=== PATIENT | female | born 2000 | race Caucasian/White ===

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

== ENCOUNTER 2022-10-06 15:34 | Outpatient (CLI) | payer OTHER, SELFPAY ==
[2022-10-06 16:57] LABS: Hepatitis B Surface Antigen Negative (Negative)
[2022-10-06 17:00] LABS: HIV 1/2 Ab P24 Ag Result Negative (Negative)
[2022-10-06 17:03] LABS: HAV RESULT Negative (Negative); Hepatitis B Core IgM Result Negative (Negative)
[2022-10-06 17:15] LABS: Hepatitis C Virus Antibody Negative (Negative)
[2022-10-07 14:47] LABS: Rapid Plasma Reagin Non-Reactive (NonReactive)
== END 2022-10-06 15:35 | disposition home or self-care (01) ==
LOC: ANHLAB 15:36
PROVIDERS: Visit Provider Obstetrics & Gynecology
DX: Z20.2 Contact with and (suspected) exposure to infections with a predominantly sexual mode of transmission (principal)
CPT/HCPCS: 36415; 80074; 86592; 86703; G0432

== ENCOUNTER 2024-01-18 23:25 | Emergency (ER) | payer OTHER, SELFPAY ==
[2024-01-18 23:46] VITALS: BP 95/55; PULSE 96; RESP 14; TEMP 36.6; O2SAT 100
--- NOTE | 2024-01-19 | ECG_ITS ---
Measurements Intervals [place] Rate: 86 P: 65 TX: 147 QRS: 76 QRSD: 87 T: 53 QT: 360 QTc: 433 Interpretive Statements SINUS RHYTHM BASELINE ARTIFACT- I, II, III, AVL NORMAL ECG NO PREVIOUS ECG AVAILABLE FOR COMPARISON Electronically Signed On 01-19-2024 9:19:39 [employer] by Slick Garcia D.O.
[2024-01-19 00:18] LABS: Hematocrit 43.5 % (37.0-47.0); Immature Platelet Fraction Pct 4.7 % (0.9-11.2); Mean Corpuscular HGB Conc 32.2 g/dl (32-36); Mean Corpuscular Hemoglobin 31.4 pg (26-34); Mean Corpuscular Volume 97.5 fl (80-100); Mean Platelet Volume 10.5 fl (7.4-10.4); Platelet Count Result 231 k/mm3 (150-375); Red Blood Count 4.46 M/mm3 (4.2-5.4); Red Cell Distribution Width 11.4 % (11.5-14.5); White Blood Count 13.8 K/mm3 (4.5-10.0)
[2024-01-19 00:37] LABS: Alanine Aminotransferase 29 U/L (6-35); Albumin Level 4.7 g/dL (3.5-5.1); Alkaline Phosphatase 92 U/L (38-126); Anion Gap 11 mmol/L (8-16); Aspartate Amino Transferase 48 U/L (14-36); Bilirubin,Total 0.6 mg/dL (0.2-1.3); Blood Urea Nitrogen 23 mg/dL (7-17); Calcium 9.4 mg/dL (8.4-10.2); Carbon Dioxide 23 mmol/L (22-30); Chloride 106 mmol/L (98-107); Estimated CRCL calculation 94 ml/min; Estimated Glomerular Filt Rate > 60; Glucose 96 mg/dL (65-110); Lipase 146 U/L (23-300); Potassium 3.4 mmol/L (3.4-5.0); Sodium 140 mmol/L (137-145)
[2024-01-19 00:44] LABS: Appearance Urine Cloudy (Clear); Bacteria Urine None Seen /hpf; Bilirubin Urine 2+ (Negative); Blood Urine Negative (Negative); Color Urine Dark Yellow (Yellow); Glucose Urine UA Negative (Negative); Ketones Urine Trace mg/dL (Negative); Leukocyte Esterase Ur Negative LEU/UL (Negative); Need Manual Microscopic Reviewed; Nitrate Urine Negative (Negative); Non Pathogenic Casts 0-2; Protein Urine 1+ mg/dL (Negative); RBC Urine 21-50 /hpf (0-2); Squamous Epithelial Cell Urine Many /hpf (Few); WBC Urine 0-5 /hpf; pH Urine 5.5 (5.0-9.0)
[2024-01-19 00:48] LABS: Band Neutrophils Percent 1 % (0-6); Lymphocytes Absolute Manual 4.83 K/mm3 (1.1-4.5); Monocytes Percent Manual 8 % (3-9); Neutrophils Absolute Manual 7.86 K/mm3 (1.7-7.2); Neutrophils Percent Manual 56 % (46-73); Total Cells Counted 100
[2024-01-19 00:49] LABS: Platelet Estimate Adequate (Adequate); Schistocytes None Seen (NORMAL)
[2024-01-19 00:52] LABS: Add Urine Microscopic? YES
--- NOTE | 2024-01-19 01:25 | PC.NURSE ---
Pt called for room, no answer
== END 2024-01-19 02:19 | disposition left against medical advice (07) ==
PROVIDERS: Emergency Provider Emergency Medicine
DX: R07.9 Chest pain, unspecified (principal)
CPT/HCPCS: 36415; 80053; 81001; 81025; 83690; 85025; 85055; 93005; 99199

== ENCOUNTER 2025-02-24 17:55 | Emergency (ER) | payer OTHER, SELFPAY ==
--- NOTE | ~2025-02-24 | US_ITS ---
FIRST TRIMESTER ULTRASOUND 02/24/2025 18:30 CDT Ordering provider: Monserrat Fierro APRN History: . vaginal bleeding and cramping . Comparison: None. FINDINGS: INTRAUTERINE GESTATIONAL SAC: Present. Measures 2.1 cm. Equal to 7 weeks. Seen in the cervix area. POLE: Present. Measures 1.6 cm. It called to 8 weeks and 0 days. Seen in the cervix area. heart tone is not detected. UTERUS: The uterus measures 7.3x 3.5x 3.7 cm. in length which is within normal limits. No myometrial masses. FREE FLUID: Seen in the cul-de-sac. OVARIES: Normal in size with the right measuring 3.6x 2.7x 2.8 cm. and the left is not demonstrated. Doppler flow is demonstrated within both ovaries. ADNEXAL MASSES: None. IMPRESSION: Intrauterine with pole seen in the cervix area. No heart tone demonstrated. Reviewed, dictated and finalized at location A.
--- OUTSIDE RECORDS SUMMARY | 2025-02-24 17:57 | XMS_ITS | Clinical Summary ---
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 Name Role Phone Tyshawn Gonzales MD Unavailable [phone] German Dobbins Unavailable Unavailable Herminio Amador Primary Care Provider + Allergies Active Allergy Reactions Criticality Noted Date Comments Latex Hives,Itching,Rash Medium 03/21/2020 Penicillins Hives,Itching,Rash Medium 06/26/2009 Sulfa (Sulfonamide Antibiotics) Hives,Itching,Rash Medium 06/26/2009 Medications ibuprofen (ADVIL,MOTRIN) 600 mg tablet Take 1 tablet (600 mg total) by mouth every 8 (eight) hours as needed for pain or headaches Active omeprazole (PriLOSEC) 40 mg capsule Take 1 capsule (40 mg total) by mouth 2 (two) times a day as needed (heartburn) Active ziprasidone (GEODON) 20 mg capsule Take 1 capsule (20 mg total) by mouth nightly Take one 40 mg capsule in the morning and one 20 mg capsule at night 30 capsule 3 Active ziprasidone (GEODON) 40 mg capsule Take 1 capsule (40 mg total) by mouth every morning Take one 40 mg capsule in the morning and one 20 mg capsule at night 30 capsule 3 Active labetaloL (NORMODYNE,TRANDAT E) 200 mg tabletIndications: hypertension Take 0.5 tablets (100 mg total) by mouth 2 (two) times a day Adjusts dose based on BP up to 200 mg twice a day if needed 60 tablet 3 Active escitalopram (LEXAPRO) 20 mg tabletIndications: Anxiety with Depression Take 1 tablet (20 mg total) by mouth daily 30 tablet 3 Active ALPRAZolam (XANAX) 1 mg tabletIndications: anxiety Take 1 tablet (1 mg total) by mouth 3 (three) times a day as needed for anxiety 90 tablet 3 Active levETIRAcetam (KEPPRA) 500 mg tablet Take 4 tablets (2,000 mg total) by mouth 2 (two) times a day 240 tablet 3 Active dextroamphetamine- amphetamine XR (ADDERALL XR) 30 mg 24 hr capsuleIndications :Attention deficit hyperactivity disorder (ADHD), unspecified ADHD type Take 2 capsules (60 mg) by mouth every morning. 60 capsule 3 Active givosiran 189 mg/mL solutionIndication s:Acute Intermittent Porphyria Inject 1.2 mL (227 mg total) under the skin every 30 (thirty) days 2 mL 11 4 Active folic acid 0.8 mg capsuleIndications :Acute intermittent porphyria (HCC) Acti ve drospirenone, contraceptive, (Slynd) tablet tabletIndications: Acute intermittent porphyria (HCC) Take 1 each (4 mg total) by mouth daily Active gentamicin (GARAMYCIN) 40 mg/mL injectionIndicatio ns:Acute intermittent porphyria (HCC) Acti ve meclizine (ANTIVERT) 25 mg tabletIndications: Acute intermittent porphyria (HCC) Acti ve nitrofurantoin monohydrate (MACROBID) 100 mg capsuleIndications :Acute intermittent porphyria (HCC) Acti ve phenazopyridine (PYRIDIUM) 200 mg tabletIndications: Acute intermittent porphyria (HCC) Acti ve Active Problems Problem Noted Date Diagnosed Date Rash 09/27/2024 Assessment & Plan (09/27/2024 6:26 PM CHARGEBACK ANALYST): Patient began c/o painful rash of the R axilla the evening of (09/26). On exam, it is erythematous and contained to axilla. No discharge or LAD appreciated. Denied pruritus or having used any new products on the area. May be due to hemin tx, as patient hasn't required administration in several months. - ordered polysporin & ibuprofen - per mother, patient will see PCP (09/29) & will f/u then AIP (acute intermittent porphyria) 10/22/2022 Assessment & Plan (10/22/2022 4:36 PM CHARGEBACK ANALYST): Followed by hematology, presenting for scheduled hematin infusion -CBC, CMP, urine porphobilinogen -Hematology notified H/O porphyria 09/23/2022 Constipation 09/23/2022 Assessment & Plan (09/23/2022 4:07 PM CHARGEBACK ANALYST): - Start miralax daily and colace BID PRN, if no BM in 24 hours, try suppository or mag citrate. - PO as tolerated. Acute intermittent (hepatic) porphyria Assessment & Plan (09/23/2022 4:06 PM CHARGEBACK ANALYST): - Followed by the heme clinic. Their service is aware of the admission. - Urine porphobilinogen ordered. CBC, CMP also pending. - Hematin infusion planned for 4 days (performed once per month since 10/2021) to begin tonight. The heme service will manage her care after today. Port to be accessed now. - She reports back pain, stomach issues are signs of a flare of her AIP, but her exam is benign. Treat back pain as discussed elsewhere. Meds for constipation as discussed elsewhere. Assessment & Plan (08/26/2022 6:15 PM CDT): Hx porphyria, presents for monthly hematin infusion. Has port in place. Hematology notified of admit. Await lab results. Monitor overnight for tolerance of infusion. Monitor serial counts and await further recs. Assessment & Plan (07/29/2022 6:49 PM CDT): -hematology fellow notified of admission. -plan for hematin infusion 07/30 -will obtain comprehensive labs including CBC, CMP, Mag, phos, PT INR, PTT Insomnia 06/24/2022 Assessment & Plan (10/22/2022 4:38 PM CHARGEBACK ANALYST): -Continue home tenex Assessment & Plan (09/23/2022 4:06 PM CHARGEBACK ANALYST): - At baseline. Continue home Tenex. Assessment & Plan (06/24/2022 11:27 PM CDT): Continue home meds ADHD 06/24/2022 Assessment & Plan (09/24/2024 9:05 AM CHARGEBACK ANALYST): On adderall 60mg daily - Continue home adderall - Adjustments per outpatient Assessment & Plan (09/12/2023 1:28 AM CDT): To resume Adderall in am Assessment & Plan (10/22/2022 4:37 PM CHARGEBACK ANALYST): -Continue home adderall Assessment & Plan (07/29/2022 6:49 PM CDT): Continue Adderall Assessment & Plan (06/24/2022 11:28 PM CDT): Continue AM, Adderal Acute pharyngitis 05/21/2022 Assessment & Plan (05/24/2022 10:12 AM CDT): History of recurrent symptoms (1-3 per year) last complicated by peritonsillar abscess (03/28-04/03) managed with 7 days of clindamycin with improvement of symptoms. Worsening symptoms for two days prior to admission. Throat culture positive for Strep dysgalactiae during prior admission. -Repeat CT shows improved peritonsillar fluid collection but worsening adenoid hypertrophy and retropharyngeal fluid collection. -HSV pharyngeal swab negative -Continue empiric antibiotic coverage with cefazolin, plan for repeated 10 day course (until tonsillectomy on 05/30 with ENT) - Transition to orals (cephalexin 50 q8 ) at discharge - Prior providers discussed with ENT re-drainage, tonsillectomy scheduled for 05/30 Assessment & Plan (05/23/2022 9:38 AM CDT): History of recurrent symptoms (1-3 per year) last complicated by peritonsillar abscess (03/28-04/03) managed with 7 days of clindamycin with improvement of symptoms. Worsening symptoms for two days prior to admission. Throat culture positive for Strep dysgalactiae during prior admission. -Repeat CT shows improved peritonsillar fluid collection but worsening adenoid hypertrophy and retropharyngeal fluid collection. -HSV pharyngeal swab negative -Continue empiric antibiotic coverage with cefazolin, plan for repeated 10 day course (until tonsillectomy on 05/30 with ENT) - Transition to orals (cephalexin or amoxicillin) at discharge - If worsening or concern for abscess progress, will transition to amp/sulbactam for added anaerobic coverage as previously responded best to clindamycin (limited use in AIP). Current responding well to 1st generation cephalosporin - Improved WBC count, no fevers, Improved symptoms - Avoid metronidazole and clindamycin given risk to exacerbate AIP - Blood cultures without growth - Prior providers discussed with ENT re-drainage, tonsillectomy scheduled for 05/30 Assessment & Plan (05/22/2022 10:00 AM CDT): History of prior symptoms complicated by peritonsillar abscess (03/28-04/03) managed with 7 days of clindamycin with improvement of symptoms. Worsening symptoms for two days prior to admission. Throat culture positive for Strep dysgalactiae during prior admission -Repeat CT shows improved peritonsillar fluid collection but worsening adenoid hypertrophy and retropharyngeal fluid collection. -HSV pharyngeal swab to r/o superimposed viral pharyngitis. -Continue empiric antibiotic coverage with cefazolin, plan for repeated 10-14 day course pending clinical improvement. - WBC count improved following antibiotics and fluids - If fails to improve, will broaden to amp/sulbactam given prior failure to improve without anaerobic coverage - Avoid metronidazole and clindamycin given risk to exacerbate AIP - Follow up blood cultures, limited utility of repeat throat culture - Prior providers discussed with ENT re-drainage, tonsillectomy scheduled for 05/30, will follow up to discuss expedited OR given recurrent hospitalizations a/w exacerbations of AIP Assessment & Plan (05/21/2022 9:21 PM CDT): -Throat culture positive for Strep dysgalactiae during prior admission, repeat CT shows improved peritonsillar fluid collection but worsening adenoid hypertrophy and retropharyngeal fluid collection. -Obtain HSV pharyngeal swab to r/o superimposed viral pharyngitis. -Continue empiric antibiotic coverage with cefazolin, plan for repeated 10-14 day course pending clinical improvement. Anemia 05/21/2022 Assessment & Plan (05/23/2022 9:40 AM CDT): -Secondary to AIP, stable Assessment & Plan (05/22/2022 10:04 AM CDT): -Secondary to AIP, stable Assessment & Plan (05/21/2022 9:27 PM CDT): -Secondary to AIP, see plan. Porphyria 05/20/2022 Assessment & Plan (05/24/2022 10:12 AM CDT): AIJP with exacerbation, diagnosed 10/2021, established with hematology (Dr. Lin) receiving scheduled Hemin infusions as outpatient via R IJ port (patent). Received Hemin 4mg/kg x 1 in the emergency department following presentation with acute behavioral requiring physical and chemical restraints associated with abdominal pain and sepsis. -Hematology following, appreciate assistance - Hemin 4mg/kg/day (336mg) daily x 4 days (last dose today) - Urine porphobilinogen after doses 2 (pending) /4 (ordered for today) - Reviewed MAR for exacerbating agents -Avoid clonopin, estrogens, hydralazine, hydroxyzine, nifedipine, nitrofurantoin, rifampin, spironolactone, topiramate, bactrim, metronidazole, clindamycin -Encouraged to avoid alcohol and tobacco Assessment & Plan (05/23/2022 9:23 AM CDT): AIJP with exacerbation, diagnosed 10/2021, established with hematology (Dr. Lin) receiving scheduled Hemin infusions as outpatient via R IJ port (patent). Received Hemin 4mg/kg x 1 in the emergency department following presentation with acute behavioral requiring physical and chemical restraints associated with abdominal pain and sepsis. -Hematology following, appreciate assistance - Hemin 4mg/kg/day (336mg) daily x 4 days (last dose 05/24, scheduled in MAR) - Urine porphobilinogen after doses 2 (pending) /4 (ordered for tomorrow) - Reviewed MAR for exacerbating agents -Avoid clonopin, estrogens, hydralazine, hydroxyzine, nifedipine, nitrofurantoin, rifampin, spironolactone, topiramate, bactrim, metronidazole, clindamycin -Encouraged to avoid alcohol and tobacco Assessment & Plan (05/22/2022 9:50 AM CDT): AIJP with exacerbation, diagnosed 10/2021, established with hematology (Dr. Lin) receiving scheduled Hemin infusions as outpatient via R IJ port (patent). Received Hemin 4mg/kg x 1 in the emergency department following presentation with acute behavioral requiring physical and chemical restraints associated with abdominal pain and sepsis. -Hematology following, appreciate assistance - Hemin 4mg/kg/day (336mg) daily x 4 days (last dose 05/24, scheduled in MAR) - Urine porphobilinogen after doses 2/4 - Reviewed MAR for exacerbating agents -Avoid clonopin, estrogens, hydralazine, hydroxyzine, nifedipine, nitrofurantoin, rifampin, spironolactone, topiramate, bactrim, metronidazole, clindamycin Assessment & Plan (05/21/2022 9:25 PM CDT): -With acute exacerbation, hematology plan for 4 doses of hemin 4mg/kg/day (336mg) daily from 05/21-05/24, obtain urine porphobilinogen after dose 2 and dose 4. -Avoid clonopin, estrogens, hydralazine, hydroxyzine, nifedipine, nitrofurantoin, rifampin, spironolactone, topiramate, bactrim during AIP exacerbation. Depression, major, recurrent 03/28/2022 Assessment & Plan (10/22/2022 4:38 PM CHARGEBACK ANALYST): -Continue home wayne mendosa PRN xanax Assessment & Plan (09/23/2022 4:05 PM CHARGEBACK ANALYST): - Home Lexapro and Geodiann. Assessment & Plan (08/26/2022 6:16 PM CDT): Continue home naderaprcandace and wayne. F/u with primary provider. No current S/H ideations. Assessment & Plan (04/01/2022 11:19 AM CDT): - Cont escitalopram Assessment & Plan (03/31/2022 5:56 PM CDT): - Cont escitalopram Assessment & Plan (03/30/2022 3:16 PM CDT): - Cont escitalopram Assessment & Plan (03/28/2022 5:07 AM CDT): - Cont escitalopram Epilepsy 12/16/2021 Assessment & Plan (09/24/2024 9:04 AM CHARGEBACK ANALYST): Likely related to AIP. Reportedly has small seizures every night though patient unable to further characterize this. Unclear if that represents actual seizure vs else - Continue home keppra 2g BID - seizure precautions Assessment & Plan (09/12/2023 1:29 AM CDT): Continue Keppra Assessment & Plan (10/22/2022 4:37 PM CHARGEBACK ANALYST): -Continue home keppra Assessment & Plan (09/23/2022 4:05 PM CHARGEBACK ANALYST): - No recent seizures. - Continue keppra 2000mg BID. Assessment & Plan (08/26/2022 6:16 PM CDT): Continue home keppra 2gm BID. No recent OP events. Assessment & Plan (07/29/2022 6:49 PM CDT): Continue Keppra Assessment & Plan (06/24/2022 11:27 PM CDT): On keppra at home, continue Assessment & Plan (05/23/2022 9:40 AM CDT): -Continue home Keppra and Geodon -Seizure precautions -No observed seizures while inpatient, typically occur with AIP flairs Assessment & Plan (05/21/2022 9:31 PM CDT): -Continue home Keppra. Assessment & Plan (05/21/2022 9:25 PM CDT): -Continue home Keppra. Assessment & Plan (04/01/2022 11:18 AM CDT): - Cont keppra Assessment & Plan (03/31/2022 5:56 PM CDT): - Cont keppra Assessment & Plan (03/30/2022 3:16 PM CDT): - Cont keppra Assessment & Plan (03/28/2022 5:06 AM CDT): - Cont keppra Assessment & Plan (02/18/2022 4:00 PM CDT): Since age 6, seizures tend to worsen with flares of AIP. - cont home keppra 2000mg BID Assessment & Plan (12/16/2021 10:12 AM CHARGEBACK ANALYST): -Continue Keppra 1500mg bid. Patient has not been started on Vimpat due to insurance coverage. Acute intermittent porphyria 10/31/2021 Assessment & Plan (09/27/2024 6:23 PM CHARGEBACK ANALYST): History of AIP following with hematology. Presented for chest pain and abdominal pain for 2 weeks consistent with prior AIP episodes. Low concern for cardiopulmonary issue. - Hematology consulted, PICC placed 09/24 & removed 09/27 - Started Hemin 4mg/kg/day daily x4d per hematology; completed 09/27 - urine PBG level (09/23): 31.6 - Avoid klonopin, estrogens, hydralazine, hydroxyzine, nifedipine, nitrofurantoin, rifampin, spironolactone, topiramate, bactrim during AIP exacerbation. Assessment & Plan (09/12/2023 5:01 AM CDT): Associated with psychiatric changes. Prior history multiple admission with behavioral changes Heme to follow up tomorrow S/p D10 in ED, currently receiving hemin to replenish the heme pool Avoid triggers including alcohol, starvation Assessment & Plan (06/24/2022 11:26 PM CDT): Presented for hematin injection Assessment & Plan (04/01/2022 11:18 AM CDT): Presenting with acute flare evidenced by typical attack symptoms and change in urine - she was originally diagnosed 10/2021 - s/p 3 inpatient admissions for hematin, while awaiting insurance for givosiran monthly. On admission T 39.2C, HR 118, BP stable - labs with unremarkable BMP, WBC 28.1, Hgb 12.2, lactate 1.2, rhinovirus/enterovirus (+), blood cultures obtained, UA not c/w infection, and CXR clear. - Hematology following - s/p Hemin 4mg/kg infusions x4d - PBG urine before and after Hemin infusions pending - Continue daily CBC, CMP Assessment & Plan (03/31/2022 5:54 PM CDT): Presenting with acute flare evidenced by typical attack symptoms and change in urine - she was originally diagnosed 10/2021 - s/p 3 inpatient admissions for hematin, while awaiting insurance for givosiran monthly. On admission T 39.2C, HR 118, BP stable - labs with unremarkable BMP, WBC 28.1, Hgb 12.2, lactate 1.2, rhinovirus/enterovirus (+), blood cultures obtained, UA not c/w infection, and CXR clear. - Hematology following - Hemin 4mg/kg infusions ordered by Heme - Check PBG urine before and after Hemin infusions and before discharge home - Continue daily CBC, CMP Assessment & Plan (03/30/2022 3:14 PM CDT): Presenting with acute flare evidenced by typical attack symptoms and change in urine - she was originally diagnosed 10/2021 - s/p 3 inpatient admissions for hematin, while awaiting insurance for givosiran monthly. On admission T 39.2C, HR 118, BP stable - labs with unremarkable BMP, WBC 28.1, Hgb 12.2, lactate 1.2, rhinovirus/enterovirus (+), blood cultures obtained, UA not c/w infection, and CXR clear. - Hematology following - Hemin 4mg/kg infusions ordered by Heme - Check PBG urine before and after Hemin infusions and before discharge home - Continue daily CBC, CMP Assessment & Plan (03/29/2022 5:01 PM CDT): Presenting with acute flare evidenced by typical attack symptoms and change in urine - she was originally diagnosed 10/2021 - s/p 3 inpatient admissions for hematin, while awaiting insurance for givosiran monthly. On admission T 39.2C, HR 118, BP stable - labs with unremarkable BMP, WBC 28.1, Hgb 12.2, lactate 1.2, rhinovirus/enterovirus (+), blood cultures obtained, UA not c/w infection, and CXR clear. - Hematology following - Hemin 4mg/kg infusions ordered by Heme - Check PBG urine before and after Hemin infusions and before discharge home Assessment & Plan (02/18/2022 4:07 PM CDT): Presented to ED w/ multiple times w/ symptoms of worsening seizures, HTN, and abdominal pain, along w/ agitation, depression, and anxiety. Urine porphibilinogen was obtained on 10/26/21 which was 151.6, and pt received 4 days hematin infusion completed on 11/05 with improvement of symptoms. She was also admitted 12/16/21 for scheduled hematin transfusion, which was her last one leading up to current admission. Per latest oncology outpatient note, plan was to start Givosiran pending insurance approval, until then will receive prophylactic monthly hematin. R chest port was placed by IR on 02/11. - admitted for hematin infusion per Dr. Lin - hematology consulted, will place infusion orders - will obtain CBC, CMP, urine porphobilinogen Assessment & Plan (12/16/2021 10:10 AM CHARGEBACK ANALYST): -Patient recently diagnosed with AIP after presenting with abdominal pain, seizure disorders and neurological disorder. Urine Porphobilinogen was elevated at 330. Patient follows with hematology and has received hematin treatment 11/05/2021 with reported improvement in symptoms. -Patient reports some intermittent absence like seizure like episodes, denies any abdominal pain or nausea to suggest a acute AIP flare at this time. -[facility] to follow up on hematin treatment. Midline low back pain 07/03/2021 Assessment & Plan (09/23/2022 4:05 PM CHARGEBACK ANALYST): - Mild and acute, but with prior episodes of pain, worse with flares of AIP. No indication for a concerning condition without neurologic finding and a stable exam. - Start scheduled tylenol 650mg Q6 hours, PRN ibuprofen. No role for narcotics here. Activity as tolerated. - Monitor. Assessment & Plan (07/03/2021 1:37 PM CDT): Assessment: Ashlee states she has chronic back pain and uses a heating pad at home which helps provide some relief. She is currently using one as an inpatient. She would like to be seen by PT and be given some exercises for home. Plan: - PT consult - heating pad PRN Assessment & Plan (07/03/2021 1:01 PM CDT): Assessment: Ashlee states she has chronic back pain and uses a heating pad at home which helps provide some relief. She is currently using one as an inpatient. She would like to be seen by PT and be given some exercises for home. Plan: - PT consult - heating pad PRN HTN (hypertension) 06/29/2021 Assessment & Plan (09/24/2024 9:17 AM CHARGEBACK ANALYST): Elevated blood pressures at home suspect driven by adderall 60mg daily. - BP soft here, hold home labetalol 100mg BID for now - Adjustments per outpatient Assessment & Plan (09/12/2023 1:29 AM CDT): Has been on labetalol at home-which is held Hypotensive on admission, normotensive currently, Continue to monitor vital signs for need of resumption of home medication Assessment & Plan (10/22/2022 4:37 PM CHARGEBACK ANALYST): -Continue home labetalol Assessment & Plan (09/23/2022 4:02 PM CHARGEBACK ANALYST): - H/o PRES, but BP stable now. - Continue labetalol 100mg BID. Monitor BP, adjust as needed. Assessment & Plan (08/26/2022 6:16 PM CDT): Continue labetalol. Assessment & Plan (07/29/2022 6:49 PM CDT): Continue labetalol Assessment & Plan (06/24/2022 11:25 PM CDT): Continue labetol Assessment & Plan (05/23/2022 9:40 AM CDT): Continue home labetalol Assessment & Plan (04/01/2022 11:18 AM CDT): - Holding home Labetalol 100mg BID in the setting of sepsis and intermittent hypotension; restart PRN Assessment & Plan (03/31/2022 5:56 PM CDT): - Holding home Labetalol 100mg BID in the setting of sepsis and intermittent hypotension; restart PRN Assessment & Plan (03/30/2022 3:16 PM CDT): - Holding home Labetalol 100mg BID in the setting of sepsis and intermittent hypotension Assessment & Plan (03/29/2022 5:05 PM CDT): - Holding home Labetalol 100mg BID in the setting of sepsis and hypotension Assessment & Plan (02/18/2022 3:38 PM CDT): - continue home labetalol 100mg BID Assessment & Plan (12/16/2021 10:11 AM CHARGEBACK ANALYST): -Well controlled, continued home labetalol 100mg bid. Assessment & Plan (07/03/2021 1:37 PM CDT): Assessment: Previously admitted to OSH for HTN crisis and started on medications. Renal consulted on 06/29 and recommended discontinuing hydralazine and increased Nifedipine dosing and starting Labetalol with spot dosing of isradipine PRN for SBP >150. Patient continues to have hyponatremia though improving. BP range overall improving. ECHO done 07/01, which was normal. CT angio obtained 07/01, which was normal and only showed fluid in the colon (consistent with diarrhea). No spot Isradipine doses given since 06/30 at 1030. Plan: -Renal consulting, appreciate their recommendations -strict I&O, daily weights -Avoid new nephrotoxic medications, no NSAIDs or aminoglycosides. -Nifedipine 90 mg XL daily and labetaolol 200mg daily -Isradipine PRN 2.5mg Q 6 hrs for BP for systolic >150 -repeat UA/micro in 1 week Assessment & Plan (07/03/2021 11:42 AM CDT): Assessment: Previously admitted to OSH for HTN crisis and started on medications. Renal consulted on 06/29 and recommended discontinuing hydralazine and increased Nifedipine dosing and starting Labetalol with spot dosing of isradipine PRN for SBP >150. Patient continues to have hyponatremia though improving. BP range overall improving. ECHO done 07/01, which was normal. CT angio obtained 07/01, which was normal and only showed fluid in the colon (consistent with diarrhea). No spot Isradipine doses given since 06/30 at 1030. Plan: -Renal consulting, appreciate their recommendations -strict I&O, daily weights -Avoid new nephrotoxic medications, no NSAIDs or aminoglycosides. -Nifedipine 90 mg XL daily and labetaolol 200mg daily -Isradipine PRN 2.5mg Q 6 hrs for BP for systolic >150 -repeat UA/micro in 1 week Assessment & Plan (07/02/2021 8:01 PM CDT): Assessment: Previously admitted to OSH for HTN crisis and started on medication. In EU, gynecology consulted for HTN since D&C procedure 06/28 and did not recommend giving Mag, this is not related to HTN. Renal consulted on 06/29 and recommended discontinuing hydralazine and increased Nifedipine dosing and starting Labetalol with spot dosing of isradipine PRN for SBP >150. Patient continues to have hyponatremia though improving. BP range overall improving. ECHO done 07/01, which was normal. CT angio obtained 07/01, which was normal and only showed fluid in the colon (consistent with diarrhea). No spot Isradipine doses given today. Plan: -Renal consulting, appreciate their recommendations -strict I&O, daily weights -Avoid new nephrotoxic medications, no NSAIDs or aminoglycosides. -Nifedipine 90 mg XL daily and labetaolol 200mg daily -Isradipine PRN 2.5mg Q 6 hrs for BP for systolic >150 -repeat UA/micro in 1 week Assessment & Plan (07/01/2021 12:14 PM CDT): Assessment: Previously admitted to OSH for HTN crisis and started on medication. In EU, gynecology consulted for HTN since D&C procedure 06/28 and did not recommend giving Mag, this is not related to HTN. Renal consulted on 06/29 and recommended discontinuing hydralazine and increased Nifedipine dosing and starting Labetalol with spot dosing of isradipine PRN for SBP >150. RFP this AM with hyponatremia and hypokalemia. Plan to repeat RFP and discuss with Renal. Plan: -Renal consulting -strict I&O, daily weights -Avoid new nephrotoxic medications, no NSAIDs or aminoglycosides. -Nifedipine 90 mg XL daily and labetaolol 200mg daily -Isradipine PRN 2.5mg Q 6 hrs for BP for systolic >150 -CT angiography today -repeat RFP -ECHO today to evaluate for LVH secondary to persistent HTN -repeat UA/micro in 1 week Assessment & Plan (06/30/2021 5:09 PM CDT): Assessment: Previously admitted to OSH for HTN crisis and started on medication. In EU, gynecology consulted for HTN since D&C procedure 06/28 and did not recommend giving Mag, this is not related to HTN. Renal consulted on 06/29 and recommended discontinuing hydralazine and increased Nifedipine dosing and starting Labetalol with spot dosing of isradipine PRN for SBP >150. Plan: -Renal consulting -strict I&O, daily weights -Avoid new nephrotoxic medications, no NSAIDs or aminoglycosides. -Nifedipine 90 mg XL daily and labetaolol 200mg daily -Isradipine PRN 2.5mg Q 6 hrs for BP for systolic >150 -CT angiography in AM -RFP, plasma normetaephrines in AM -ECHO to evaluate for LVH secondary to persistent HTN -repeat UA/micro in 1 week Assessment & Plan (06/29/2021 3:25 AM CDT): Assessment: Previously admitted to OSH for HTN crisis and started on medication. In EU, gynecology consulted for HTN since D&C procedure 06/28 and did not recommend giving Mag, this is not related to HTN, Plan: [ ] Renal consult -Nifedipine 60 mg XL daily and Hydralazine 50 mg TID -Nifedipine 10mg PRN for BP > 150/90 Abdominal pain 06/29/2021 Assessment & Plan (07/03/2021 1:37 PM CDT): Assessment: Prior to admission hadn't had BM for 3 weeks. Briefly on golytely clean out after no BM while taking Q 2 lactulose. Coffee ground emesis resolved and she was put on daily oral PPI. Started miralax BID On 06/30 and patient had soft formed BM on afternoon of 06/30. Coffee ground emesison 07/[address] angio obtained 07/01, which was normal and only showed fluid in the colon (consistent with diarrhea). Received x3 doses of Carafate over last 24 hours. H. Pylori 07/02 negative. Having diarrhea today, 07/03. Plan: -GI consulting, appreciate their recommendations -IV Protonix (07/01 - ) -holding home Lansoprazole 30mg -Miralax BID -Carafate PRN Assessment & Plan (07/03/2021 11:45 AM CDT): Assessment: Prior to admission hadn't had BM for 3 weeks. Briefly on golytely clean out after no BM while taking Q 2 lactulose. Coffee ground emesis resolved and she was put on daily oral PPI. Started miralax BID On 06/30 and patient had soft formed BM on afternoon of 06/30. Coffee ground emesison 07/[address] angio obtained 07/01, which was normal and only showed fluid in the colon (consistent with diarrhea). Received x3 doses of Carafate over last 24 hours. H. Pylori 07/02 negative. Having diarrhea today, 07/03. Plan: -GI consulting, appreciate their recommendations -IV Protonix (07/01 - ) -holding home Lansoprazole 30mg -Miralax BID -Carafate PRN Assessment & Plan (07/02/2021 8:04 PM CDT): Assessment: Prior to admission hadn't had BM for 3 weeks. Briefly on golytely clean out after no BM while taking Q 2 lactulose. Coffee ground emesis resolved and she is on daily oral PPI. Started miralax BID On 06/30 and patient had soft formed BM on afternoon of 06/30. Patient is now stooling and without further coffee ground emesis, but has intermittent abdominal pain. CT angio obtained 07/01, which was normal and only showed fluid in the colon (consistent with diarrhea). Received x1 dose of Carafate overnight. Mother expressed interest in obtaining H. Pylori sample - obtained 07/02, which was negative. Plan: -GI consulting, appreciate their recommendations -IV Protonix (07/01 - ) -holding home Lansoprazole 30mg -Miralax BID -Carafate PRN Assessment & Plan (07/01/2021 11:23 AM CDT): Assessment: Prior to admission hadn't had BM for 3 weeks. Briefly on golytely clean out after no BM while taking Q 2 lactulose. Coffee ground emesis resolved and she is on daily oral PPI. Started miralax BID On 06/30 and patient had soft formed BM on afternoon of 06/30. Plan: -GI following -NPO currently for CT angio this AM-Regular diet post CT -lansoprazole 30mg daily -Miralax BID Assessment & Plan (06/30/2021 5:01 PM CDT): Assessment: Has only had a small stool in last 3 weeks. Mother feels like constipation is contributing to abdominal pain. Has been taking miralax and senna without relief of symptoms but is not drinking more than a few ounces per day. Abdomen slightly tender to palpation. Started on lactulose q 2 hours without result so therefore and NG tube was placed and she started on a GoLytely bowel clean out. She had intermittently been having small amounts of coffee ground emesis +guaic so was started on IV protonix. After starting the golytely she had multiple large coffee ground emesis so GI team was consulted and her IV protonix was increased to BID and her NG removed and Golytely held. CBC with H/H of 12 and 33.8. No further episodes of emesis overnight. An abdominal x-ray was obtained which reveal stool burden in the right colon but without obstruction. Plan: -GI consulting -d/c IV Protonix and start PO lansoprazole 30mg daily -advance diet as tolerated -Miralax BID Assessment & Plan (06/29/2021 4:07 AM CDT): Assessment: Has only had a small stool in last 3 weeks. Mother feels like constipation is contributing to abdominal pain. Has been taking miralax and senna without relief of symptoms but is not drinking more than a few ounces per day. Abdomen slightly tender to palpation. Plan: -Lactulose q2h until stools Mood disorder Assessment & Plan (09/24/2024 9:02 AM CHARGEBACK ANALYST): Euthymic at this time - Continue home lexapro 20, geodon 40/20 - Adjustments per outpatient Assessment & Plan (09/12/2023 1:27 AM CDT): Continue home medications including Geodon, Keppra, Lexapro Assessment & Plan (09/23/2022 4:03 PM CHARGEBACK ANALYST): - Baseline flat affect. Appears stable at baseline. - Continue adderall for ADHD, lexapro 20mg daily, Geodon 40mg QAM, 20mg QPM. Xanax 1mg TID PRN for anxiety per home dosing. Assessment & Plan (07/29/2022 6:49 PM CDT): Continue Lexapro, ziprasidone, Xanax p.r.n. Assessment & Plan (06/24/2022 11:26 PM CDT): Ziprasidone Lexapro Assessment & Plan (05/23/2022 9:39 AM CDT): -Continue home Lexapro 20mg daily, ziprasidone 40mg qAM and 20mg qPM, guanfacine 2mg qhs and Adderall 60mg daily. -Continue Xanax 1mg tid prn for anxiety. Assessment & Plan (05/22/2022 10:00 AM CDT): -Continue home Lexapro 20mg daily, ziprasidone 40mg qAM and 20mg qPM, guanfacine 2mg qhs and Adderall 60mg daily. -Continue Xanax 1mg tid prn for anxiety. Assessment & Plan (05/21/2022 9:26 PM CDT): -Continue home Lexapro 20mg daily, ziprasidone 40mg qAM and 20mg qPM and Adderall 60mg daily. -Continue Xanax tid prn for anxiety. Assessment & Plan (02/18/2022 3:39 PM CDT): - continue home lexapro 20mg, ziprasidone 40mg morning 20mg evening, adderall XR 60mg, alprazolam 1mg prn daily Assessment & Plan (12/16/2021 10:12 AM CHARGEBACK ANALYST): -Continue Adderall 60mg daily, Lexapro 20mg daily, Geodon 40mg qAM and 20mg qPM and Xanax 1mg daily prn for anxiety. Assessment & Plan (07/03/2021 1:35 PM CDT): Assessment: History of mood disorder, anxiety, depression and ADHD. Prior to admission was on Lexapro 20mg daily, guanfacine (Tenex) 2mg nightly, Geodon 20mg in the morning and 40mg in the evening and xanax PRN. Previously on Adderall but has been off for several months. Holding Geodon currently due to prolonged QTc of 480. Patient is not currently followed by psychology or psychiatry on an outpatient basis. 1:[address], Risperidone started and Psychiatry recommended increasing Risperidone to BID. Stable overnight. Plan: -Psychiatry consulting, appreciate their recommendations -Psychology following -Risperidone 0.5mg daily - increased to BID 07/02 -if patient continues to have significant agitation, consider increasing nighttime dose of Risperidone to 1mg -1:1 sitter -continue home lexapro and guanfacine -HOLD home geodon dosing as this medication can prolong QTc Assessment & Plan (07/03/2021 11:37 AM CDT): Assessment: History of mood disorder, anxiety, depression and ADHD. Prior to admission was on Lexapro 20mg daily, guanfacine (Tenex) 2mg nightly, Geodon 20mg in the morning and 40mg in the evening and xanax PRN. Previously on Adderall but has been off for several months. Holding Geodon currently due to prolonged QTc of 480. Patient is not currently followed by psychology or psychiatry on an outpatient basis. 1:[address], Risperidone started and Psychiatry recommended increasing Risperidone to BID. Stable overnight. Plan: -Psychiatry consulting, appreciate their recommendations -Psychology following -Risperidone 0.5mg daily - increased to BID 07/02 -if patient continues to have significant agitation, consider increasing nighttime dose of Risperidone to 1mg -1:1 sitter -continue home lexapro and guanfacine -HOLD home geodon dosing as this medication can prolong QTc Assessment & Plan (07/02/2021 8:07 PM CDT): Assessment: History of mood disorder, anxiety, depression and ADHD. Prior to admission was on Lexapro 20mg daily, guanfacine (Tenex) 2mg nightly, Geodon 20mg in the morning and 40mg in the evening and xanax PRN. Previously on Adderall but has been off for several months. Overnight and this morning has had verbally aggressive outbursts towards mom and staff and has been obsessive about taking frequent showers with associated increased anxiety and reports of reproducible chest pain. Geodon currently on hold due to prolong QTc of 480. Patient is not currently followed by psychology or psychiatry on an outpatient basis. 1:[address], Risperidone started. Today, Psychiatry recommended increasing Risperidone to BID. Plan: -Psychiatry consulting, appreciate their recommendations -Psychology following -Risperidone 0.5mg daily - increase to BID 07/02 -if patient continues to have significant agitation, consider increasing nighttime dose of Risperidone to 1mg -1:1 sitter -continue home lexapro and guanfacine -HOLD home geodon dosing as this medication can prolong QTc Assessment & Plan (07/01/2021 11:37 AM CDT): Assessment: History of mood disorder, anxiety, depression and ADHD. Prior to admission was on Lexapro 20mg daily, guanfacine (Tenex) 2mg nightly, Geodon 20mg in the morning and 40mg in the evening and xanax PRN. Previously on Adderall but has been off for several months. Overnight and this morning has had verbally aggressive outbursts towards mom and staff and has been obsessive about taking frequent showers with associated increased anxiety and reports of reproducible chest pain. Geodon currently on hold due to prolong QTc of 480. Patient is not currently followed by psychology or psychiatry on an outpatient basis. Plan: -continue home lexapro and guanfacine -HOLD home geodon dosing as this medication can prolong QTc -consult to psychology -consult to psychiatry. Assessment & Plan (06/30/2021 4:50 PM CDT): Assessment: History of mood disorder, ADHD and depression. Plan: -continue home lexapro and guanfacine -HOLD home geodon dosing as this medication can prolong QTc and behaviors have been appropriate -consult to psychology on 07/01 Prolonged Q-T interval on ECG Assessment & Plan (07/03/2021 1:34 PM CDT): Assessment: Patient currently on several medications, including Geodon,isradipine and ondansetron that may cause QTc prolongation. An EKG was obtained on 06/29 which showed a QTc of 478. Repeat QTc of 480 on 07/01. Geodon held due to QTc. Plan: -HOLD Geodon (although patient is having increased anxiety and outbursts-c/s to psychiatry for further recommendations. -will use ondansetron for N/V only as needed -continue to monitor QTc and limit QTc prolonging medications Assessment & Plan (07/03/2021 11:36 AM CDT): Assessment: Patient currently on several medications, including Geodon,isradipine and ondansetron that may cause QTc prolongation. An EKG was obtained on 06/29 which showed a QTc of 478. Repeat QTc of 480 on 07/01. Geodon held due to QTc. Plan: -HOLD Geodon (although patient is having increased anxiety and outbursts-c/s to psychiatry for further recommendations. -will use ondansetron for N/V only as needed -continue to monitor QTc and limit QTc prolonging medications Assessment & Plan (07/02/2021 8:07 PM CDT): Assessment: Patient currently on several medications, including Geodon,isradipine and ondansetron that may cause QTc prolongation. An EKG was obtained on 06/29 which showed a QTc of 478. Repeat QTc of 480 on 07/01. Plan: -HOLD Geodon (although patient is having increased anxiety and outbursts-c/s to psychiatry for further recommendations. -will use ondansetron for N/V only as needed -continue to monitor QTc and limit QTc prolonging medications Assessment & Plan (07/01/2021 12:13 PM CDT): Assessment: Patient currently on several medications, including Geodon,isradipine and ondansetron that may cause QTc prolongation. An EKG was obtained on 06/29 which showed a QTc of 478. Repeat QTc of 480 on 07/01. Plan: -HOLD Geodon (although patient is having increased anxiety and outbursts-c/s to psychiatry for further recommendations. -will use ondansetron for N/V only as needed -continue to monitor QTc and limit QTc prolonging medications Assessment & Plan (06/30/2021 5:07 PM CDT): Assessment: Patient currently on several medications, including Geodon,isradipine and ondansetron that may cause QTc prolongation. An EKG was obtained on 06/29 which showed a QTc of 478. Plan: -HOLD Geodon as behaviors in the hospital have been appropriate -will use ondansetron for N/V only as needed -continue to monitor QTc and limit QTc prolonging medications Resolved Problems Problem Noted Date Diagnosed Date Resolved Date Hypokalemia 07/30/2022 10/22/2022 Recurrent streptococcal tonsillitis 05/30/2022 10/22/2022 Pharyngeal abscess 05/22/2022 Assessment & Plan (05/23/2022 9:38 AM CDT): Since previous CT, the adenoids are now hypertrophied and enhancing with reactive retropharyngeal fluid and lateral retropharyngeal lymphadenopathy. This is likely an infectious pharyngitis. - Management of pharyngitis as above Assessment & Plan (05/22/2022 10:00 AM CDT): Since previous CT, the adenoids are now hypertrophied and enhancing with reactive retropharyngeal fluid and lateral retropharyngeal lymphadenopathy. This is likely an infectious pharyngitis. - Management of pharyngitis as above Toxic metabolic encephalopathy 05/22/2022 10/22/2022 Assessment & Plan (05/23/2022 9:39 AM CDT): Resoled, likely multifactorial in the setting of acute agitation/behavioral outburst which required PD, restraints, and chemical restraint with combination of haloperidol and IV diazepan in the setting of acute infection/sepsis and AIP exacerbation. - Currently at baseline mentating appropriately Assessment & Plan (05/22/2022 10:07 AM CDT): Multifactorial in the setting of acute agitation/behavioral outburst which required PD, restraints, and chemical restraint with combination of haloperidol and IV diazepan in the setting of acute infection/sepsis and AIP exacerbation. Also received [place] overnight. Continues to maintain airway, arouses to moderate stimuli. - Able to ambulate to restroom with RN this morning - Limit sedating medications and opiates as much as possible - Limit restraints - Management of AIP and sepsis as above Recurrent peritonsillar abscess 03/29/2022 10/22/2022 Assessment & Plan (04/03/2022 10:28 AM CDT): Patient with tonsillitis/pharyngitis and R intratonsillar abscess with mild airway narrowing seen on CT. ENT recommends medical management. O2 sats stable on RA. Throat cx w/ Strep dysgalactiae. - cont to have pharyngitis and tonsillar edema, however airway is intact and able to tolerate solid PO intake - repeat CT neck showed evolving abscess of R right palatine tonsil. - Asked ENT to re-eval based on new CT findings and lack of clinical improvement, attempted bedside aspiration but unsuccessful. Rec broadening abx coverage and cont med management. - currently on cefepime (03/29- ), added clindamycin 04/02. Seems to be slowly improving on new regimen. - Scheduled APAP, Oxycodone, GI cocktail for pain control Assessment & Plan (03/31/2022 5:56 PM CDT): Patient with tonsillitis/pharyngitis and R intratonsillar abscess with mild airway narrowing seen on CT. ENT recommends medical management. O2 sats stable on RA. Throat cx w/ Strep dysgalactiae. - S/p Zosyn (03/29), now on Cefe - Scheduled APAP, Oxycodone, GI cocktail for pain control Assessment & Plan (03/30/2022 3:16 PM CDT): Patient with tonsillitis/pharyngitis and R intratonsillar abscess with mild airway narrowing seen on CT. ENT recommends medical management. O2 sats stable on RA. Throat cx w/ Strep dysgalactiae. - S/p Zosyn (03/29), now on Cefe - Scheduled APAP, Oxycodone, GI cocktail for pain control Assessment & Plan (03/29/2022 4:51 PM CDT): Patient with tonsillitis/pharyngitis and R intratonsillar abscess with mild airway narrowing seen on CT. ENT recommends medical management. O2 sats stable on RA. - Continue Zosyn (started 03/29) - Throat cx pending - Scheduled APAP, Oxycodone, GI cocktail for pain control Rhinovirus infection 03/28/2022 022 Assessment & Plan (04/01/2022 11:19 AM CDT): - Supportive therapy - CTM Assessment & Plan (03/31/2022 5:56 PM CDT): - Supportive therapy - CTM Assessment & Plan (03/30/2022 3:16 PM CDT): - Supportive therapy - CTM Assessment & Plan (03/28/2022 5:06 AM CDT): - Supportive therapy - CTM Sepsis 03/28/2022 10/22/2022 Assessment & Plan (05/23/2022 9:40 AM CDT): Resolved, Sepsis without severe features, presumed secondary to acute pharyngitis vs non-infectious etiology in the setting of AIP exacerbation and acute episode of agitation - Bcx NGTD - ABx for oropharyngeal pathogens as above Assessment & Plan (05/22/2022 10:03 AM CDT): Sepsis without severe features, presumed secondary to acute pharyngitis vs non-infectious etiology in the setting of AIP exacerbation and acute episode of agitation - SIRS 2 (WBC + tachycardia), qSOFA 1 (AMS) - 2 L IVF given on admission, hemodynamics improved - Bx 2 pending, NGTD - ABx for oropharyngeal pathogens as above Assessment & Plan (04/02/2022 2:21 PM CDT): In setting of viral illness, tonsillar abscess, and AIP flare. Vitals stabilizing w/ IVF, abx. Throat culture growing Strep dysgalactiae. - cont abx above Assessment & Plan (03/31/2022 5:55 PM CDT): In setting of viral illness, tonsillar abscess, and AIP flare. Vitals stabilizing w/ IVF, abx. Throat culture growing Strep dysgalactiae. - Continue to monitor - S/p Zosyn 03/29; now switched to Cefe - Continue IVF for now Assessment & Plan (03/30/2022 3:16 PM CDT): In setting of viral illness, tonsillar abscess, and AIP flare. Vitals stabilizing w/ IVF, abx. Throat culture growing Strep dysgalactiae. - Continue to monitor - S/p Zosyn 03/29; now switched to Cefe - Continue IVF @ 125cc/hr for now Assessment & Plan (03/29/2022 5:04 PM CDT): In setting of viral illness, tonsillar abscess, and AIP flare. Vitals stabilizing w/ IVF, abx. - Continue to monitor - Zosyn as noted elsewhere - Continue IVF @ 125cc/hr for now Hyponatremia 07/02/2021 10/22/2022 Assessment & Plan (07/03/2021 1:35 PM CDT): Assessment: Na decreased as low as 121. Sodium chloride oral supplementation started. Today, Na = 129. Renal following, who recommended serum osmolality, urine Na, UA, and urine metanemphrines as well as fluid restriction. Concern for SIADH vs. Psychogenic polydipsia. IVF stopped last night to adhere to fluid restriction and will encourage po intake. Plan: -Renal consulting, appreciate their recommendations -fluid restriction 1500ml/day -IVF; watch I/O -daily RFP -Na Cl 17mEq BID - increased to TID 07/02 Assessment & Plan (07/03/2021 11:40 AM CDT): Assessment: Na decreased as low as 121. Sodium chloride oral supplementation started. Today, Na = 129. Renal following, who recommended serum osmolality, urine Na, UA, and urine metanemphrines as well as fluid restriction. Concern for SIADH vs. Psychogenic polydipsia. IVF stopped last night to adhere to fluid restriction and will encourage po intake. Plan: -Renal consulting, appreciate their recommendations -fluid restriction 1500ml/day -IVF; watch I/O -daily RFP -Na Cl 17mEq BID - increased to TID 07/02 Assessment & Plan (07/02/2021 8:10 PM CDT): Assessment: Na decreased as low as 121. Sodium chloride oral supplementation started. Today, Na = 126. Renal following, who recommended serum osmolality, urine Na, UA, and urine metanemphrines as well as fluid restriction. Concern for SIADH vs. Psychogenic polydipsia. Plan: -Renal consulting, appreciate their recommendations -fluid restriction 1500ml/day -IVF; watch I/O -daily RFP -Na Cl 17mEq BID - increase to TID today Supervision of high-risk pre gnancy, first trimester 06/24/2021 10/22/2022 Overview (06/24/2021): Added automatically from request for surgery [id number] Nausea & vomiting 06/20/2021 10/22/2022 Assessment & Plan (04/03/2022 10:28 AM CDT): Likely related to AIP. No improvement with Zofran. Patient continues to report, though objectively appears to be improving. - Compazine PRN with periodic EKGs for QTc monitoring (411 on 03/30) - added PRN Ativan d/t uncontrolled N/V despite Compazine - nausea improved 04/02-04/03 Assessment & Plan (03/31/2022 5:54 PM CDT): Likely related to AIP. No improvement with Zofran. Patient continues to report, though objectively appears to be improving. - Compazine PRN with periodic EKGs for QTc monitoring (411 on 03/30) - Could consider Ativan 0.25mg PRN if uncontrolled N/V despite Compazine (but doubt she will need this) - Decrease IVF to 75/hr for today given increase in PO intake Assessment & Plan (03/30/2022 3:14 PM CDT): Likely related to AIP. No improvement with Zofran. - Switch to Compazine PRN with periodic EKGs for QTc monitoring (411 on 03/30) - Continue IVF @ 125cc/hr for today Assessment & Plan (03/29/2022 4:55 PM CDT): Likely related to AIP. - Zofran PRN with periodic EKGs for QTc monitoring - Continue IVF Encounters Date Type Department Care Team Description 01/19/2025 7:15 AM CHARGEBACK ANALYST Lab [facility] - Lab Collection [facility] [address] [place] [address] Acute intermittent porphyria (HCC) 01/04/2025 7:45 AM CHARGEBACK ANALYST Lab [facility] - Lab Collection [address] [place], [place] [address]e [address] [place] [address] Acute intermittent porphyria (HCC) 12/12/2024 Documentation [facility] Hematology [facility] [address] [place] [address] Annamarie Phipps RMA Prior Auth (Joe Approved through 12/09/25 [place]) 12/07/2024 11:30 AM CHARGEBACK ANALYST Lab [facility] - Lab Collection [address] [place], [place] [address] [address] [place] [address] Acute intermittent porphyria (HCC) 12/07/2024 Orders Only [facility] Hematology [facility] Floor [address] [place] [address] Aarti Marquez, geodetic survey director intermittent porphyria (HCC) (Primary Dx) from Last 3 Months Immunizations Immunization Administration Dates Next Due DTaP 06/29/2007, 3,2002,07/25 HPV, Quadrivalent 08/28/2014,03/03/2014,08/30/20 13 Hep A, Pediatric 08/30/2013,04/20/2012 Hep B, Adolescent or Pediatric 03/14/2003 Hep B, Unspecified 2002,2002 Hib (HbOC) 06/12/2003 IPV 06/29/2007,09/20/2003,2002 Influenza, Quadrivalent, Christa l Culture-based MDCK, Preservative Free, Antibiotic Free, Intramuscular 09/03/2022 Influenza, Quadrivalent, Spl it, Preservative Free, Intramuscular 11/05/2021,09/27/2018,09/28/2017,10/17,08/28/2014 Influenza, Split 12/19/2003 MMR 06/29/2007,06/12/2003 Meningococcal B, Recombinant (Trumenba) 05/30/2019,11/05/2018 Meningococcal MCV4, Unspecified 11/05/2018,08/30 Pfizer SARS-CoV-2 Monovalent Vaccination (12+ Yrs) PURPLE 12/18/2021,11/16/2021 Tdap 08/30/2013 Varicella 04/20/2012,03/14/2003 Surgical History Surgery Date Site/Laterality Comments INDUCED 11/16/2017 - 11/15/2018 D&C FIRST TRIMESTER / TX INC OMPLETE / MISSED / SEPTIC / INDUCED 06/2021 PORT PLACEMENT CHEST >5 YEARS 02/11/2022 N/A PORT REMOVAL 09/15/2023 N/A Medical History Medical History Date Comments Epilepsy (HCC) Seizures (HCC) Mood disorder Depression Depression Posterior reversible encephalopathy syndrome Acute intermittent porphyria (HCC) 11/01/2021 Hypertension Family History Medical History Relation Name Comments Hypertension Mother Hypothyroidism Mother Seizures Sister two sisters Anesthesia problems Neg Hx Relation Name Status Comments Father Alive unknown medical history since does not go to doctors Mother Alive Sister two sisters Alive Social History Tobacco Use Types Packs/Day Years Used Date Smoking Tobacco: Never Passive Smoke Exposure: Never Smokeless Tobacco: Never Tobacco Cessation:Counseling Given: Not Answered Alcohol Use Standard Drinks/Week Comments Never 0 (1 standard drink = 0.6 oz pur e alcohol) Social Connection and Isolation Panel [NHANES] A nswer Date Recorded In a typical week, how many times do you talk on the phone with family, friends, or neighbors? Patient declined 10/23/2022 How often do you get togethe r with friends or relatives? Patient declined 10/23/2022 How often do you attend muslim or mosque serv ices? Patient declined 10/23/2022 Do you belong to any clubs o r organizations such as muslim groups, unions, fraternal or athletic groups, or school groups? Patient declined 10/23/2022 How often do you attend meet ings of the clubs or organizations you belong to? Patient declined 10/23/2022 Are you , , di vorced, , never , or living with a partner? Never 10/23/2022 AUDIT-C Answer Date Recorded Q1: How often do you have a drink containing alc ohol? Never 09/23/2022 Average Number of Drinks Not on file 022 Frequency of Binge Drinking Not on file 06/2022 Overall Financial Resource Strain (CARDIA) Answe r Date Recorded How hard is it for you to pa y for the very basics like food, housing, medical care, and heating? Patient declined 10/23/2022 PHQ-2 Answer Date Recorded PHQ-2 Total Score 0 08/28/2022 Hunger Vital Sign Answer Date Recorded Within the past 12 months, y ou worried that your food would run out before you got the money to buy more. Patient declined Within the past 12 months, t he food you bought just didn't last and you didn't have money to get more. Patient declined 06/2022 PRAPARE - Transportation Answer Date Re corded In the past 12 months, has l ack of transportation kept you from medical appointments or from getting medications? Patient declined 10/23/2022 In the past 12 months, has l ack of transportation kept you from meetings, work, or from getting things needed for daily living? Patient declined 10/23/2022 Housing Stability Vital Sign Answer Elie e Recorded In the last 12 months, was t here a time when you were not able to pay the mortgage or rent on time? Patient refused 10/23/20 22 In the last 12 months, how many places have you lived? 1 10/23/2022 In the last 12 months, was t here a time when you did not have a steady place to sleep or slept in a detention (including now)? Patient refused 10/23/2022 Personal Safety Answer Date Recorded Have you ever been in or are you currently in a harmful physical or emotional relationship or is someone making you feel afraid or unsafe? Denies 09/24/2024 Comments No Sex and Gender Information Value Date Recorded Sex Assigned at Not on file Legal Sex Female 1:37 AM CHARGEBACK ANALYST Gender Identity Not on file Sexual Orientation Not on file Obstetrics History Para Term AB IAB SAB Ectopic Multiple Livin g Live Births 1 0 0 0 0 0 0 0 Date Outcome GA Total Labor Labor/2nd/3rd Weight Sex Type Anes PTL Fidelia A1 A5 Name Clin Last Filed Vital Signs Vital Sign Reading Time Taken Comments Blood Pressure 133/68 09/27/2024 1:39 PM CHARGEBACK ANALYST Pulse 79 10/05/2024 2:28 PM CHARGEBACK ANALYST Temperature 36.3 C (97.3 F) 10/05/2024 2:28 PM CHARGEBACK ANALYST Respiratory Rate 16 10/05/2024 2:28 PM CHARGEBACK ANALYST Oxygen Saturation 98% 10/05/2024 2:28 PM CHARGEBACK ANALYST Inhaled Oxygen Concentration - - Weight 107 kg (235 lb 12.8 oz) 10/05/2024 2:25 P M CHARGEBACK ANALYST Height 165.1 cm (5' 5 ) 09/24/2024 8:23 AM CHARGEBACK ANALYST Body Mass Index 39.24 09/24/2024 8:23 AM CHARGEBACK ANALYST Plan of Treatment Health Maintenance Due Date Last Done Comments Cervical Cancer Screening 2002 Regular Well Visit/Exam 18-64 2020 Depression Screening 08/21/2023 08/21/2022, 06/20/2022, 05/20/2022, Additional history exists DTaP/Tdap/Td Vaccine (6 - Td or Tdap) 08/30/2023 08/30/2013, 06/29/2007, 09/20/2003, Additional history exists Covid-19 Vaccine ( season) 2024 12/18/2021, 11/16/2021 Influenza Vaccine (#1) 2024 , 11/05/2021, 09/27/2018, Additional history exists Hepatitis B Screening Completed 03/14/2003 , 2002, 2002 Varicella Vaccines Completed 04/20/2012, 03/14/2003 HPV Vaccines Completed 08/28/2014, 02/14, 08/30/2013 Meningococcal B Vaccine Completed 05/30/2019, 11/05 Hepatitis C Screening Completed 10/18/2021 Pneumococcal vaccine <65 Aged Out No longer eligible based on patient's age to complete this topic Medical Devices Implanted Type 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 Officer [employer] Flight 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 Device Identifier Shelf Expiration Date Model / Serial / Lot [employer] Power Port 8fr [id number] - [id number] Implanted:Qty: 1 on 02/11/2022 at [facility] [employer] 11/04/2026 [id number] / / [id number] Procedures Procedure Name Priority Date/Time Associated Diagnosis Comments EGFR Routine 01/19/2025 7:40 AM CHARGEBACK ANALYST Acute intermittent porphyria (HCC) DIFFERENTIAL AUTO Routine 01/19/2025 7:4 0 AM CHARGEBACK ANALYST Acute intermittent porphyria (HCC) CBC WITH AUTO DIFFERENTIAL Routine 01/19/2025 7:40 AM CHARGEBACK ANALYST Acute intermittent porphyria (HCC) COMPREHENSIVE METABOLIC PANEL Routine 01/19/2025 7:40 AM CHARGEBACK ANALYST Acute intermittent porphyria (HCC) HOMOCYSTEINE Routine 01/19/2025 7:40 AM CHARGEBACK ANALYST Acute intermittent porphyria (HCC) PORPHOBILINOGEN QUANTITATIVE, URINE, RANDOM Routine 01/19/2025 7:40 AM CHARGEBACK ANALYST Acute intermittent porphyria (HCC) EGFR Routine 01/04/2025 7:51 AM CHARGEBACK ANALYST Acute intermittent porphyria (HCC) DIFFERENTIAL AUTO Routine 01/04/2025 7:5 1 AM CHARGEBACK ANALYST Acute intermittent porphyria (HCC) CBC WITH AUTO DIFFERENTIAL Routine 01/04/2025 7:51 AM CHARGEBACK ANALYST Acute intermittent porphyria (HCC) COMPREHENSIVE METABOLIC PANEL Routine 01/04/2025 7:51 AM CHARGEBACK ANALYST Acute intermittent porphyria (HCC) HOMOCYSTEINE Routine 01/04/2025 7:51 AM CHARGEBACK ANALYST Acute intermittent porphyria (HCC) PORPHOBILINOGEN QUANTITATIVE, URINE, RANDOM Routine 01/04/2025 7:47 AM CHARGEBACK ANALYST Acute intermittent porphyria (HCC) PORPHOBILINOGEN QUANTITATIVE, URINE, RANDOM Routine 12/07/2024 11:20 AM CHARGEBACK ANALYST Acute intermittent porphyria (HCC) DIFFERENTIAL AUTO Routine 12/07/2024 11: 08 AM CHARGEBACK ANALYST Acute intermittent porphyria (HCC) CBC WITH AUTO DIFFERENTIAL Routine 12/07/2024 11:08 AM CHARGEBACK ANALYST Acute intermittent porphyria (HCC) EGFR Routine 12/07/2024 10:56 AM CHARGEBACK ANALYST Acute intermittent porphyria (HCC) COMPREHENSIVE METABOLIC PANEL Routine 12/07/2024 10:56 AM CHARGEBACK ANALYST Acute intermittent porphyria (HCC) HOMOCYSTEINE Routine 12/07/2024 10:56 AM CHARGEBACK ANALYST Acute intermittent porphyria (HCC) HEPATITIS PANEL, ACUTE STAT 4:17 PM CHARGEBACK ANALYST from Last 3 Months or Most Recently Relevant to Health Maintenance Results * eGFR (01/19/2025 7:40 AM CHARGEBACK ANALYST) eGFR >90 >=60 mL/min/1. 73 m2 Comment: Interpretive Data Reference Interval Normal >/= 90 mL/min/1.73m2 Mildly decreased* 60 - 89 mL/min/1.73m2 Mildly to moderately decreased 45 - 59 mL/min/1.73m2 Moderately to severely decreased 30 - 44 mL/min/1.73m2 Severely decreased 15 - 29 mL/min/1.73m2 Kidney Failure < 15 mL/min/1.73m2 *Relative to young adult level Estimated glomerular filtration rate is determined by the 2020 CKD-EPI equation recommended by the National Kidney Foundation (A Unifying Approach to GFR Estimation: Recommendations of the NKF-ASK Task Force on Reassessing the Inclusion of Race in Diagnosing Kidney Disease, JASN 2020). The CKD-EPI equation should not be used for patients with unstable renal function and has not been validated in children and those over 70. Current interpretive data was last reviewed 2021. Blood 01/19/2025 7:40 AM CHARGEBACK ANALYST 01/19/2025 8:22 AM CHARGEBACK ANALYST us Salima Lin MD LAB BLOOD ORDERABLES Final R esult [facility] Department [place] [address] * (ABNORMAL) Differential, auto (01/19/2025 7:40 AM CHARGEBACK ANALYST) Neutrophil abs 7.4(H) 1.5 - 6.5 K/cumm Comment:Testing performed by : [facility], [address] [place] [phone] Lymphocyte abs 3.5(H) 0.8 - 3.3 K/cumm [facility] Comment:Testing performed by : [facility], [address] [place] [phone] Monocyte abs 1.2(H) 0.2 - 0.8 K/cumm [facility] Comment:Testing performed by : [facility], [address] [place] [phone] Eosinophil abs 0.1 0.0 - 0.5 K/cumm [facility] Comment:Testing performed by : [facility], [address] [place] [phone] Basophil abs 0.1 0.0 - 0.1 K/cumm [facility] Comment:Testing performed by : [facility], [address] [place] [phone] Neutrophil pct 60.3 % [facility] Comment: Interpretive Data Percent cell count reference ranges are not reported, since discordance with absolute values may lead to misinterpretation of CBC data. Current Interpretive Data was last revised on 2018. Testing performed by: [facility], [address] [place] [phone] Lymphocyte pct 28.3 % [facility] Comment: Interpretive Data Percent cell count reference ranges are not reported, since discordance with absolute values may lead to misinterpretation of CBC data. Current Interpretive Data was last revised on 2018. Testing performed by: [facility], [address] [place] [phone] Monocyte pct 9.9 % [facility] Comment: Interpretive Data Percent cell count reference ranges are not reported, since discordance with absolute values may lead to misinterpretation of CBC data. Current Interpretive Data was last revised on 2018. Testing performed by: [facility], [address] [place] [phone] Eosinophil pct 0.6 % [facility] Comment: Interpretive Data Percent cell count reference ranges are not reported, since discordance with absolute values may lead to misinterpretation of CBC data. Current Interpretive Data was last revised on 2018. Testing performed by: [facility], [address] [place] [phone] Basophil pct 0.9 % [facility] Comment: Interpretive Data Percent cell count reference ranges are not reported, since discordance with absolute values may lead to misinterpretation of CBC data. Current Interpretive Data was last revised on 2018. Testing performed by: [facility], [address] [place] [phone] Blood 01/19/2025 7:40 AM CHARGEBACK ANALYST 01/19/2025 7:53 AM CHARGEBACK ANALYST Salima Lin MD LAB BLOOD ORDERABLES Final R esult [facility] Department [place] [address] * (ABNORMAL) CBC with auto differential (01/19/2025 7:40 AM CHARGEBACK ANALYST) WBC 12.3(H) 3.8 - 9.9 K/cumm Comment:Testing performed by : [facility], [address] [place] [phone] Hgb 13.1 11.9 - 15.5 g/dL [facility] Comment:Testing performed by : [facility], [address] [place] [address] Hct 38.7 35.6 - 45.5 % [facility] Comment:Testing performed by : [facility], [address] [place] [address] Plt 327 150 - 400 K/cumm [facility] Comment:Testing performed by : [facility], [address] [place] [address] MPV 8.7 6.8 - 10.4 fL [facility] Comment:Testing performed by : [facility], [address] [place], [place] [phone] RBC 4.21 3.90 - 5.20 M/cumm [facility] Comment:Testing performed by : [facility], [address] [place] [address] MCV 91.8 81.3 - 96.4 fL [facility] Comment:Testing performed by : [facility], [address] [place] [address] MCH 31.1 27.1 - 33.3 pg [facility] Comment:Testing performed by : [facility], [address] [place] [address] MCHC 33.9 32.3 - 35.7 g/dL [facility] Comment:Testing performed by : [facility], [address] [place] [address] RDW CV 12.9 11.1 - 14.9 % [facility] Comment:Testing performed by : [facility], [address] [place] [address] NRBC abs 0.00 0.00 - 0.01 K/cumm [facility] Comment:Testing performed by : [facility], [address] [place] [address] Blood 01/19/2025 7:40 AM CHARGEBACK ANALYST 01/19/2025 7:53 AM CHARGEBACK ANALYST Narrative [facility] - 01/19/2025 7:56 AM CHARGEBACK ANALYST Draw monthly us Salima Lin MD LAB BLOOD ORDERABLES Final R esult [facility] Department [place] [address] * (ABNORMAL) Porphobilinogen quantitative, urine, random (01/19/2025 7:40 AM CHARGEBACK ANALYST) Pathologist [facility] Porphobilinogen, ur 56.8(H) <=1.3 mcmol/L [facility] Porphobilinogen interp, ur See Footnote [facility] Comment: Follow up of a known patient with acute intermittent porphyria. ADDITIONAL INFORMATION Liquid Chromatography-Tandem Mass Spectrometry (LC-MS/MS) This test was developed and its performance characteristics determined by [facility] in a manner consistent with CLIA requirements. This test has not been cleared or approved by the U.S. Food and Drug Administration. Reviewed by See Footnote [facility] Comment: RESULT: Felisha Mehta M.D., Ph.D. Test Performed by: [address] [address] Chrome Cleaner: Woody Farris Ph.D.; CLIA# [id number] Urine 01/19/2025 7:40 AM CHARGEBACK ANALYST 01/19/2025 9:33 AM CHARGEBACK ANALYST Narrative [facility] - 01/23/2025 3:25 PM CDT Draw monthly us Salima Lin MD LAB URINE ORDERABLES Final R esult [facility] Department [place] [address] [facility] * Homocysteine (01/19/2025 7:40 AM CHARGEBACK ANALYST) [facility] Homocysteine 10.6 0.0 - 15.0 mcmol/L Blood 01/19/2025 7:40 AM CHARGEBACK ANALYST 01/19/2025 8:22 AM CHARGEBACK ANALYST Narrative [facility] - 01/19/2025 6:16 PM CHARGEBACK ANALYST Draw monthly us Salima Lin MD LAB BLOOD ORDERABLES Final R esult [facility] Department [place] [address] * (ABNORMAL) Comprehensive metabolic panel (01/19/2025 7:40 AM CHARGEBACK ANALYST) [facility] Sodium 138 135 - 145 mmol/L Potassium, pl 3.5 3.3 - 4.9 mmol/L [facility] Chloride 106 97 - 110 mmol/L [facility] CO2 23 22 - 32 mmol/L [facility] Anion gap 9 2 - 15 mmol/L [facility] BUN 8 6 - 25 mg/dL [facility] Creatinine 0.81 0.60 - 1.10 mg/dL [facility] Glucose 103 70 - 199 mg/dL [facility] Comment: Interpretive Data Fasting glucose >/= 126 mg/dl is diagnostic for diabetes. Fasting is defined as no caloric intake for at least 8 hours. Fasting glucose between 100 mg/dl to 125 mg/dl is diagnostic of prediabetes. In a patient with classic symptoms of hyperglycemia or hyperglycemic crisis, a random glucose >/= 200 mg/dl is diagnostic for diabetes. In the absence of unequivocal hyperglycemia, results should be confirmed by repeat testing. The classification and Diagnosis of Diabetes Diabetes Care 2021; 46: S19-S40. Current interpretive data was last revised 2022. Calcium 9.2 8.5 - 10.3 mg/dL [facility] Bilirubin, total 0.2 0.1 - 1.2 mg/dL [facility] Protein, pl 8.0 6.5 - 8.5 g/dL [facility] Albumin 4.1 3.5 - 5.0 g/dL [facility] Alk phos 147(H) 40 - 130 Units/L [facility] ALT 24 7 - 45 Units/L [facility] AST 29 10 - 45 Units/L [facility] Blood 01/19/2025 7:40 AM CHARGEBACK ANALYST 01/19/2025 8:22 AM CHARGEBACK ANALYST Narrative [facility] - 01/19/2025 8:42 AM CHARGEBACK ANALYST Draw monthly Salima Lin MD LAB BLOOD ORDERABLES Final R esult Performing Organization Address City/[facility]/ZIP Co de Phone Number [facility] Department [place] [address] * eGFR (01/04/2025 7:51 AM CHARGEBACK ANALYST) eGFR 84 >=60 mL/min/1. 73 m2 Comment: Interpretive Data Reference Interval Normal >/= 90 mL/min/1.73m2 Mildly decreased* 60 - 89 mL/min/1.73m2 Mildly to moderately decreased 45 - 59 mL/min/1.73m2 Moderately to severely decreased 30 - 44 mL/min/1.73m2 Severely decreased 15 - 29 mL/min/1.73m2 Kidney Failure < 15 mL/min/1.73m2 *Relative to young adult level Estimated glomerular filtration rate is determined by the 2020 CKD-EPI equation recommended by the National Kidney Foundation (A Unifying Approach to GFR Estimation: Recommendations of the NKF-ASK Task Force on Reassessing the Inclusion of Race in Diagnosing Kidney Disease, JASN 202). The CKD-EPI equation should not be used for patients with unstable renal function and has not been validated in children and those over 70. Current interpretive data was last reviewed 2021. Blood 01/04/2025 7:51 AM CHARGEBACK ANALYST 01/04/2025 8:03 AM CHARGEBACK ANALYST Salima Lin MD LAB BLOOD ORDERABLES Final R esult Performing Organization Address City/[facility]/ZIP Co de Phone Number [facility] Department [place] [address] * (ABNORMAL) Differential, auto (01/04/2025 7:51 AM CHARGEBACK ANALYST) Pathologist [facility] Neutrophil abs 6.9(H) 1.5 - 6.5 K/cumm Comment:Testing performed by : [facility], [address] [place] [phone] Lymphocyte abs 3.9(H) 0.8 - 3.3 K/cumm [facility] Comment:Testing performed by : [facility], [address] [place] [phone] Monocyte abs 1.0(H) 0.2 - 0.8 K/cumm [facility] Comment:Testing performed by : [facility], [address] [place], [place] [phone] Eosinophil abs 0.1 0.0 - 0.5 K/cumm [facility] Comment:Testing performed by : [facility], [address] [place] [phone] Basophil abs 0.1 0.0 - 0.1 K/cumm [facility] Comment:Testing performed by : [facility], [address] [place] [phone] Neutrophil pct 57.1 % [facility] Comment: Interpretive Data Percent cell count reference ranges are not reported, since discordance with absolute values may lead to misinterpretation of CBC data. Current Interpretive Data was last revised on 2018. Testing performed by: [facility], [address] [place] [phone] Lymphocyte pct 32.5 % [facility] Comment: Interpretive Data Percent cell count reference ranges are not reported, since discordance with absolute values may lead to misinterpretation of CBC data. Current Interpretive Data was last revised on 2018. Testing performed by: [facility], [address] [place] [phone] Monocyte pct 8.6 % [facility] Comment: Interpretive Data Percent cell count reference ranges are not reported, since discordance with absolute values may lead to misinterpretation of CBC data. Current Interpretive Data was last revised on 2018. Testing performed by: [facility], [address] [place] [phone] Eosinophil pct 0.8 % [facility] Comment: Interpretive Data Percent cell count reference ranges are not reported, since discordance with absolute values may lead to misinterpretation of CBC data. Current Interpretive Data was last revised on 2018. Testing performed by: [facility], [address] [place] [phone] Basophil pct 1.0 % [facility] Comment: Interpretive Data Percent cell count reference ranges are not reported, since discordance with absolute values may lead to misinterpretation of CBC data. Current Interpretive Data was last revised on 2018. Testing performed by: [facility], [address] [place] [phone] Blood 01/04/2025 7:51 AM CHARGEBACK ANALYST 01/04/2025 8:00 AM CHARGEBACK ANALYST us Salima Lin MD LAB BLOOD ORDERABLES Final R esult [facility] Department [place] [address] * (ABNORMAL) CBC with auto differential (01/04/2025 7:51 AM CHARGEBACK ANALYST) WBC 12.1(H) 3.8 - 9.9 K/cumm Comment:Testing performed by : [facility], [address] [place] [address] Hgb 13.8 11.9 - 15.5 g/dL [facility] Comment:Testing performed by : [facility], [address] [place] [address] Hct 41.5 35.6 - 45.5 % [facility] Comment:Testing performed by : [facility], [address] [place] [address] Plt 315 150 - 400 K/cumm [facility] Comment:Testing performed by : [facility], [address] [place] [address] MPV 8.5 6.8 - 10.4 fL [facility] Comment:Testing performed by : [facility], [address] [place], [place] [phone] RBC 4.49 3.90 - 5.20 M/cumm [facility] Comment:Testing performed by : [facility], [address] [place], [place] [phone] MCV 92.5 81.3 - 96.4 fL [facility] Comment:Testing performed by : [facility], [address] [place], [place] [phone] MCH 30.7 27.1 - 33.3 pg [facility] Comment:Testing performed by : [facility], [address] [place], [place] [phone] MCHC 33.2 32.3 - 35.7 g/dL [facility] Comment:Testing performed by : [facility], [address] [place] [address] RDW CV 13.2 11.1 - 14.9 % [facility] Comment:Testing performed by : [facility], [address] [place], [place] [phone] NRBC abs 0.00 0.00 - 0.01 K/cumm [facility] Comment:Testing performed by : [facility] [facility] [address] [place] [address] Blood 01/04/2025 7:51 AM CHARGEBACK ANALYST 01/04/2025 8:00 AM CHARGEBACK ANALYST Narrative [facility] - 01/04/2025 8:04 AM CHARGEBACK ANALYST Draw monthly us Salima Lin MD LAB BLOOD ORDERABLES Final R esult [facility] Department [place] [address] * Homocysteine (01/04/2025 7:51 AM CHARGEBACK ANALYST) Homocysteine 10.8 0.0 - 15.0 mcmol/L Blood 01/04/2025 7:51 AM CHARGEBACK ANALYST 01/04/2025 8:32 AM CHARGEBACK ANALYST Narrative [facility] - 01/04/2025 9:04 AM CHARGEBACK ANALYST Draw monthly us Salima Lin MD LAB BLOOD ORDERABLES Final R esult [facility] Department [place] [address] * (ABNORMAL) Comprehensive metabolic panel (01/04/2025 7:51 AM CHARGEBACK ANALYST) Sodium 140 135 - 145 mmol/L Potassium, pl 3.8 3.3 - 4.9 mmol/L [facility] Chloride 105 97 - 110 mmol/L [facility] CO2 27 22 - 32 mmol/L [facility] Anion gap 8 2 - 15 mmol/L [facility] BUN 13 6 - 25 mg/dL [facility] Creatinine 0.98 0.60 - 1.10 mg/dL [facility] Glucose 99 70 - 199 mg/dL [facility] Comment: Interpretive Data Fasting glucose >/= 126 mg/dl is diagnostic for diabetes. Fasting is defined as no caloric intake for at least 8 hours. Fasting glucose between 100 mg/dl to 125 mg/dl is diagnostic of prediabetes. In a patient with classic symptoms of hyperglycemia or hyperglycemic crisis, a random glucose >/= 200 mg/dl is diagnostic for diabetes. In the absence of unequivocal hyperglycemia, results should be confirmed by repeat testing. The classification and Diagnosis of Diabetes Diabetes Care 2021; 46: S19-S40. Current interpretive data was last revised 2022. Calcium 9.5 8.5 - 10.3 mg/dL [facility] Bilirubin, total 0.3 0.1 - 1.2 mg/dL [facility] Protein, pl 8.1 6.5 - 8.5 g/dL [facility] Albumin 4.1 3.5 - 5.0 g/dL [facility] Alk phos 157(H) 40 - 130 Units/L [facility] ALT 33 7 - 45 Units/L [facility] AST 38 10 - 45 Units/L [facility] Blood 01/04/2025 7:51 AM CHARGEBACK ANALYST 01/04/2025 8:03 AM CHARGEBACK ANALYST Narrative [facility] - 01/04/2025 8:28 AM CHARGEBACK ANALYST Draw monthly Salima Lin MD LAB BLOOD ORDERABLES Final R esult Performing Organization Address [facility] de Phone Number [facility] Department [place] [address] * (ABNORMAL) Porphobilinogen quantitative, urine, random (01/04/2025 7:47 AM CHARGEBACK ANALYST) Porphobilinogen, ur 107.3(H) <=1.3 mcmol/L [facility] Porphobilinogen interp, ur See Footnote [facility] Comment: Follow up of a known patient with acute intermittent porphyria. ADDITIONAL INFORMATION Liquid Chromatography-Tandem Mass Spectrometry (LC-MS/MS) This test was developed and its performance characteristics determined by [facility] in a manner consistent with CLIA requirements. This test has not been cleared or approved by the U.S. Food and Drug Administration. Reviewed by See Footnote [facility] Comment: RESULT: Marcelina Graham, PhD Test Performed by: [place] [address] Chrome Cleaner: Woody Farris Ph.D.; CLIA# [id number] Urine 01/04/2025 7:47 AM CHARGEBACK ANALYST 01/04/2025 10:01 AM CHARGEBACK ANALYST Narrative [facility] - 01/10/2025 9:27 AM CHARGEBACK ANALYST Draw monthly us Salima Lin MD LAB URINE ORDERABLES Final R esult Performing Organization Address [facility] Co de Phone Number [facility] Department [place] [address] [facility] * (ABNORMAL) Porphobilinogen quantitative, urine, random (12/07/2024 11:20 AM CHARGEBACK ANALYST) Pathologist [facility] Porphobilinogen, ur 88.8(H) <=1.3 mcmol/L [facility] Porphobilinogen interp, ur See Footnote [facility] Comment: Follow up of a known patient with acute intermittent porphyria. ADDITIONAL INFORMATION Liquid Chromatography-Tandem Mass Spectrometry (LC-MS/MS) This test was developed and its performance characteristics determined by [facility] in a manner consistent with CLIA requirements. This test has not been cleared or approved by the U.S. Food and Drug Administration. Reviewed by See Footnote [facility] Comment: RESULT: Felisha Mehta M.D., Ph.D. Test Performed by: [place] [address] Chrome Cleaner: Woody Farris Ph.D.; CLIA# [id number] Urine 12/07/2024 11:2 0 AM CHARGEBACK ANALYST 12/07/2024 2:07 PM CHARGEBACK ANALYST Narrative [facility] - 12/09/2024 11:59 AM CHARGEBACK ANALYST Draw monthly us Salima Lin MD LAB URINE ORDERABLES Final R esult [facility] Department of Laboratories [place], [place] [id number] [facility] * (ABNORMAL) Differential, auto (12/07/2024 11:08 AM CHARGEBACK ANALYST) Pathologist [facility] Neutrophil abs 10.1(H) 1.5 - 6.5 K/cumm Comment:Testing performed by : [facility], [address] [place] [phone] Lymphocyte abs 3.3 0.8 - 3.3 K/cumm [facility] Comment:Testing performed by : [facility], [address] [place] [phone] Monocyte abs 1.0(H) 0.2 - 0.8 K/cumm [facility] Comment:Testing performed by : [facility], [address] [place] [phone] Eosinophil abs 0.0 0.0 - 0.5 K/cumm [facility] Comment:Testing performed by : [facility], [address] [place] [phone] Basophil abs 0.0 0.0 - 0.1 K/cumm [facility] Comment:Testing performed by : [facility], [address] [place] [phone] Neutrophil pct 69.8 % [facility] Comment: Interpretive Data Percent cell count reference ranges are not reported, since discordance with absolute values may lead to misinterpretation of CBC data. Current Interpretive Data was last revised on 2018. Testing performed by: [facility], [address] [place] [phone] Lymphocyte pct 22.6 % [facility] Comment: Interpretive Data Percent cell count reference ranges are not reported, since discordance with absolute values may lead to misinterpretation of CBC data. Current Interpretive Data was last revised on 2018. Testing performed by: [facility], [address] [place] [phone] Monocyte pct 7.1 % [facility] Comment: Interpretive Data Percent cell count reference ranges are not reported, since discordance with absolute values may lead to misinterpretation of CBC data. Current Interpretive Data was last revised on 2018. Testing performed by: [facility], [address] [place] [phone] Eosinophil pct 0.2 % [facility] Comment: Interpretive Data Percent cell count reference ranges are not reported, since discordance with absolute values may lead to misinterpretation of CBC data. Current Interpretive Data was last revised on 2018. Testing performed by: [facility], [address] [place] [phone] Basophil pct 0.3 % [facility] Comment: Interpretive Data Percent cell count reference ranges are not reported, since discordance with absolute values may lead to misinterpretation of CBC data. Current Interpretive Data was last revised on 2018. Testing performed by: [facility], [address] [place] [address] Blood 12/07/2024 11:0 8 AM CHARGEBACK ANALYST 12/07/2024 11:38 AM CHARGEBACK ANALYST Salima Lin MD LAB BLOOD ORDERABLES Final R esult [facility] Department [place] [address] * (ABNORMAL) CBC with auto differential (12/07/2024 11:08 AM CHARGEBACK ANALYST) WBC 14.4(H) 3.8 - 9.9 K/cumm Comment:Testing performed by : [facility], [address] [place] [address] Hgb 13.2 11.9 - 15.5 g/dL [facility] Comment:Testing performed by : [facility], [address] [place] [address] Hct 40.6 35.6 - 45.5 % [facility] Comment:Testing performed by : [facility], [address] [place] [address] Plt 275 150 - 400 K/cumm [facility] Comment:Testing performed by : [facility], [address] [place] [address] MPV 8.7 6.8 - 10.4 fL [facility] Comment:Testing performed by : [facility], [address] [place] [address] RBC 4.36 3.90 - 5.20 M/cumm [facility] Comment:Testing performed by : [facility], [address] [place] [address] MCV 93.0 81.3 - 96.4 fL [facility] Comment:Testing performed by : [facility], [address] [place] [address] MCH 30.3 27.1 - 33.3 pg [facility] Comment:Testing performed by : [facility], [address] [place] [phone] MCHC 32.6 32.3 - 35.7 g/dL [facility] Comment:Testing performed by : [facility], [address] [place] [phone] RDW CV 13.1 11.1 - 14.9 % [facility] Comment:Testing performed by : [facility], [address] [place] [phone] NRBC abs 0.00 0.00 - 0.01 K/cumm [facility] Comment:Testing performed by : [facility], [address] [place] [phone] Blood 12/07/2024 11:0 8 AM CHARGEBACK ANALYST 12/07/2024 11:38 AM CHARGEBACK ANALYST Narrative [facility] - 12/07/2024 11:42 AM CHARGEBACK ANALYST Draw monthly us Salima Lin MD LAB BLOOD ORDERABLES Final R esult [facility] Department [place] [address] * eGFR (12/07/2024 10:56 AM CHARGEBACK ANALYST) eGFR See Comment >=60 Comment: Interpretive Data Reference Interval Normal >/= 90 mL/min/1.73m2 Mildly decreased* 60 - 89 mL/min/1.73m2 Mildly to moderately decreased 45 - 59 mL/min/1.73m2 Moderately to severely decreased 30 - 44 mL/min/1.73m2 Severely decreased 15 - 29 mL/min/1.73m2 Kidney Failure < 15 mL/min/1.73m2 *Relative to young adult level Estimated glomerular filtration rate is determined by the 2020 CKD-EPI equation recommended by the National Kidney Foundation (A Unifying Approach to GFR Estimation: Recommendations of the NKF-ASK Task Force on Reassessing the Inclusion of Race in Diagnosing Kidney Disease, JASN 2020). The CKD-EPI equation should not be used for patients with unstable renal function and has not been validated in children and those over 70. Current interpretive data was last reviewed 2021. Blood 12/07/2024 10:5 6 AM CHARGEBACK ANALYST 12/07/2024 11:25 AM CHARGEBACK ANALYST Salima Lin MD LAB BLOOD ORDERABLES Edited Result - Final Performing Organization Address [facility] Co de Phone Number [facility] [place] [address] * Homocysteine (12/07/2024 10:56 AM CHARGEBACK ANALYST) Homocysteine 14.8 0.0 - 15.0 mcmol/L Blood 12/07/2024 10:5 6 AM CHARGEBACK ANALYST 12/07/2024 12:45 PM CHARGEBACK ANALYST Narrative [facility] - 12/07/2024 1:27 PM CHARGEBACK ANALYST Draw monthly Salima Lin MD LAB BLOOD ORDERABLES Final R esult Performing Organization Address [facility] [place] [address] * Comprehensive metabolic panel (12/07/2024 10:56 AM CHARGEBACK ANALYST) Sodium See Comment 135 - 145 mmol/L Comment:Credited: Sample inv estigated and is suggestive of an improper collection (e.g., IV fluid contamination, improper tube type). Deleted at the Request of Donya Marquez RN on 12/07/2024 12:20:20 CHARGEBACK ANALYST by kera . Potassium, pl See Comment 3.3 - 4.9 mmol/L [facility] Comment: Repeated and Verified Critical result called to and read back by Donya THURMAN) on 12/07/2024 12:20:58 CHARGEBACK ANALYST to kera. Credited: Sample investigated and is suggestive of an improper collection (e.g., IV fluid contamination, improper tube type). Deleted at the Request of Donya Marquez RN on 12/07/2024 12:20:20 CHARGEBACK ANALYST by kera . Chloride See Comment 97 - 110 mmol/L [facility] Comment:Credited: Sample inv estigated and is suggestive of an improper collection (e.g., IV fluid contamination, improper tube type). Deleted at the Request of Donya Marquez RN on 12/07/2024 12:20:20 CHARGEBACK ANALYST by kera . CO2 See Comment 22 - 32 mmol/L [facility] Comment:Credited: Sample inv estigated and is suggestive of an improper collection (e.g., IV fluid contamination, improper tube type). Deleted at the Request of Donya Marquez RN on 12/07/2024 12:20:20 CHARGEBACK ANALYST by kera . Anion gap See Comment 2 - 15 mmol/L [facility] Comment:Credited: Sample inv estigated and is suggestive of an improper collection (e.g., IV fluid contamination, improper tube type). Deleted at the Request of Donya Marquez RN on 12/07/2024 12:20:20 CHARGEBACK ANALYST by kera . BUN See Comment 6 - 25 mg/dL [facility] Comment:Credited: Sample inv estigated and is suggestive of an improper collection (e.g., IV fluid contamination, improper tube type). Deleted at the Request of Donya Marquez RN on 12/07/2024 12:20:20 CHARGEBACK ANALYST by kera . Creatinine See Comment 0.60 - 1.10 mg/dL [facility] Comment:Credited: Sample inv estigated and is suggestive of an improper collection (e.g., IV fluid contamination, improper tube type). Deleted at the Request of Donya Marquez RN on 12/07/2024 12:20:20 CHARGEBACK ANALYST by kera . Glucose See Comment 70 - 199 mg/dL [facility] Comment: Credited: Sample investigated and is suggestive of an improper collection (e.g., IV fluid contamination, improper tube type). Deleted at the Request of Donya Marquez RN on 12/07/2024 12:20:20 CHARGEBACK ANALYST by kera . Interpretive Data Fasting glucose >/= 126 mg/dl is diagnostic for diabetes. Fasting is defined as no caloric intake for at least 8 hours. Fasting glucose between 100 mg/dl to 125 mg/dl is diagnostic of prediabetes. In a patient with classic symptoms of hyperglycemia or hyperglycemic crisis, a random glucose >/= 200 mg/dl is diagnostic for diabetes. In the absence of unequivocal hyperglycemia, results should be confirmed by repeat testing. The classification and Diagnosis of Diabetes Diabetes Care 2021; 46: S19-S40. Current interpretive data was last revised 2022. Calcium See Comment 8.5 - 10.3 mg/dL [facility] Comment: Repeated and Verified Critical result called to and read back by Donya THURMAN) on 12/07/2024 12:20:58 CHARGEBACK ANALYST to kera. Credited: Sample investigated and is suggestive of an improper collection (e.g., IV fluid contamination, improper tube type). Deleted at the Request of Donya Marquez RN on 12/07/2024 12:20:20 CHARGEBACK ANALYST by kera . Bilirubin, total See Comment 0.1 - 1.2 mg/dL [facility] Comment:Credited: Sample inv estigated and is suggestive of an improper collection (e.g., IV fluid contamination, improper tube type). Deleted at the Request of Donya Marquez RN on 12/07/2024 12:20:20 CHARGEBACK ANALYST by kera . Protein, pl See Comment 6.5 - 8.5 g/dL [facility] Comment:Credited: Sample inv estigated and is suggestive of an improper collection (e.g., IV fluid contamination, improper tube type). Deleted at the Request of Donya Marquez RN on 12/07/2024 12:20:20 CHARGEBACK ANALYST by kera . Albumin See Comment 3.5 - 5.0 g/dL [facility] Comment:Credited: Sample inv estigated and is suggestive of an improper collection (e.g., IV fluid contamination, improper tube type). Deleted at the Request of Donya Marquez RN on 12/07/2024 12:20:20 CHARGEBACK ANALYST by kera . Alk phos See Comment 40 - 130 Units/L [facility] Comment:Credited: Sample inv estigated and is suggestive of an improper collection (e.g., IV fluid contamination, improper tube type). Deleted at the Request of Donya Marquez RN on 12/07/2024 12:20:20 CHARGEBACK ANALYST by kera . ALT See Comment 7 - 45 Units/L [facility] Comment:Credited: Sample inv estigated and is suggestive of an improper collection (e.g., IV fluid contamination, improper tube type). Deleted at the Request of Donya Marquez RN on 12/07/2024 12:20:20 CHARGEBACK ANALYST by kera . AST See Comment 10 - 45 Units/L [facility] Comment:Credited: Sample inv estigated and is suggestive of an improper collection (e.g., IV fluid contamination, improper tube type). Deleted at the Request of Donya Marquez RN on 12/07/2024 12:20:20 CHARGEBACK ANALYST by kera . Blood 12/07/2024 10:5 6 AM CHARGEBACK ANALYST 12/07/2024 11:25 AM CHARGEBACK ANALYST Narrative [facility] - 12/07/2024 12:40 PM CHARGEBACK ANALYST Draw monthly us Salima Lin MD LAB BLOOD ORDERABLES Edited Result - Final Performing Organization Address City/State/[facility] Co de Phone Number [facility] Department [place] [address] * Hepatitis panel, acute (10/18/2021 4:17 PM CHARGEBACK ANALYST) Hep A IgM Nonreactive Nonreactive [facility] Comment: Interpretive Data: If Hep A IgM Ab is reported as Equivocal, a new sample should be drawn in two weeks for testing. Current interpretive data was last revised on 20. Hep B core IgM Nonreactive Nonreactive [facility] Comment: Interpretive Data If HepB Core IgM Ab is reported as Equivocal, a new sample should be drawn in two weeks for testing. Current interpretive data was last revised on 20. Hep C Ab Nonreactive Nonreactive [facility] Comment:Antibodies to HCV no t detected. Does NOT exclude the possibility of recent exposure to HCV. HepBsAg Nonreactive Nonreactive [facility] Blood 10/18/2021 4:17 PM CHARGEBACK ANALYST 10/18/2021 4:43 PM CHARGEBACK ANALYST us German Nelson MD LAB MICROBIOLOGY - GENERAL ORDERABLES Edited Result - Final [facility] Department [place] [address] from Last 3 Months or Most Recently Relevant to Health Maintenance Insurance [employer] 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 ADVANCE DIRECTIVE 10/17/2021 4:06 PM ADVANCE DIRECTIVE 03/07/2021 12:59 PM ADVANCE DIRECTIVE 03/07/2021 12:59 PM ADVANCE DIRECTIVE 03/21/2020 3:20 PM * Full Code (Latest Code Status on File) Date Activated Date Inactivated Comments 09/24/2024 8:26 AM 09/27/2024 11:04 PM * Full Code Date Activated Date Inactivated Comments 09/11/2023 9:28 PM 09/16/2023 2:39 AM * Full Code Date Activated Date Inactivated Comments 10/22/2022 3:38 PM 10/24/2022 1:47 AM * Full Code Date Activated Date Inactivated Comments 09/23/2022 3:03 PM 09/26/2022 9:39 PM * Full Code Date Activated Date Inactivated Comments 08/26/2022 6:21 PM 08/30/2022 11:31 PM Care Teams Threader Operator Relationship Specialty Start Date End Date Herminio Amador PA [facility] [place] [address] PCP - General Internal Medicine 09/26/24 [place] [address] [facility] [place] [address] 06/20/21 German Dobbins, FUNERAL DRIVER Speech Language Pathologist Speech Therapy 04/22/18
--- OUTSIDE RECORDS SUMMARY | 2025-02-24 17:58 | XMS_ITS | Clinical Summary ---
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 Family History Medical History Relation Name Comments Healthy Mother Healthy Sister 1 Healthy Sister 2 Healthy Sister 3 Relation Name Status Comments Mother Sister 1 Sister 2 Sister 3 Social History Tobacco Use Types Packs/Day Years Used Date Smoking Tobacco: Never Smokeless Tobacco: Never Alcohol Use Standard Drinks/Week Comments No 0 (1 standard drink = 0.6 oz pur e alcohol) Comments No Sex and Gender Information Value Date Recorded Sex Assigned at Not on file Legal Sex Female 5:17 AM FIREWALL ENGINEER Gender Identity Not on file Sexual Orientation Not on file Last Filed Vital Signs Vital Sign Reading Time Taken Comments Blood Pressure 108/64 01/15/2017 11:03 AM FIREWALL ENGINEER Pulse - - Temperature - - Respiratory Rate - - Oxygen Saturation - - Inhaled Oxygen Concentration - - Weight 72 kg (158 lb 12.8 oz) 01/15/2017 11:03 A M FIREWALL ENGINEER Height 166 cm (5' 5.35 ) 01/15/2017 11:03 AM FIREWALL ENGINEER Body Mass Index 26.14 01/15/2017 11:03 AM FIREWALL ENGINEER Plan of Treatment Health Maintenance Due Date Last Done Comments CHLAMYDIA SCREENING (ANNUAL) 11-24 YEARS 2013 HPV VACCINES (1 - 3-dose series) 2017 DTAP/TDAP/TD VACCINES (1 - Tdap) 2021 HEPATITIS B VACCINES (1 of 3 - 19+ 3-dose series) 02/15 CERVICAL CANCER SCREENING 2023 HPV/Cotest (21-29) 2023 PAP SMEAR 2023 INFLUENZA VACCINE (#1) 2024 Care Teams Receiving Associate Relationship Specialty Start [place] [address] [place] [address] [place] [id number] PCP - General 07/15/05
--- OUTSIDE RECORDS SUMMARY | 2025-02-24 17:58 | XMS_ITS | Referral Summary ---
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 Lin MD LAB URINE ORDERABLES Final R esult [facility] Department [place] [address] [facility] * (ABNORMAL) Differential, auto (12/07/2024 11:08 AM POLICE INSPECTOR) Pathologist [facility] Neutrophil abs 10.1(H) 1.5 - 6.5 K/cumm Comment:Testing performed by : [facility], [address] [place] [phone] Lymphocyte abs 3.3 0.8 - 3.3 K/cumm [facility] Comment:Testing performed by : [facility], [address] [place] [phone] Monocyte abs 1.0(H) 0.2 - 0.8 K/cumm [facility] Comment:Testing performed by : [facility], [address] [place] [phone] Eosinophil abs 0.0 0.0 - 0.5 K/cumm [facility] Comment:Testing performed by : [facility], [address] [place] [phone] Basophil abs 0.0 0.0 - 0.1 K/cumm [facility] Comment:Testing performed by : [facility], [address] [place] [phone] Neutrophil pct 69.8 % [facility] Comment: Interpretive Data Percent cell count reference ranges are not reported, since discordance with absolute values may lead to misinterpretation of CBC data. Current Interpretive Data was last revised on 2018. Testing performed by: [facility], [address] [place] [phone] Lymphocyte pct 22.6 % [facility] Comment: Interpretive Data Percent cell count reference ranges are not reported, since discordance with absolute values may lead to misinterpretation of CBC data. Current Interpretive Data was last revised on 2018. Testing performed by: [facility], [address] [place] [phone] Monocyte pct 7.1 % [facility] Comment: Interpretive Data Percent cell count reference ranges are not reported, since discordance with absolute values may lead to misinterpretation of CBC data. Current Interpretive Data was last revised on 2018. Testing performed by: [facility], [address] [place] [phone] Eosinophil pct 0.2 % [facility] Comment: Interpretive Data Percent cell count reference ranges are not reported, since discordance with absolute values may lead to misinterpretation of CBC data. Current Interpretive Data was last revised on 2018. Testing performed by: [facility], [address] [place] [phone] Basophil pct 0.3 % [facility] Comment: Interpretive Data Percent cell count reference ranges are not reported, since discordance with absolute values may lead to misinterpretation of CBC data. Current Interpretive Data was last revised on 2018. Testing performed by: [facility], [address] [place] [address] Blood 12/07/2024 11:0 8 AM POLICE INSPECTOR 12/07/2024 11:38 AM POLICE INSPECTOR us Salima Lin MD LAB BLOOD ORDERABLES Final R esult [facility] Department [place] [address] * (ABNORMAL) CBC with auto differential (12/07/2024 11:08 AM POLICE INSPECTOR) WBC 14.4(H) 3.8 - 9.9 K/cumm Comment:Testing performed by : [facility], [address] [place] [address] Hgb 13.2 11.9 - 15.5 g/dL [facility] Comment:Testing performed by : [facility], [address] [place] [address] Hct 40.6 35.6 - 45.5 % [facility] Comment:Testing performed by : [facility], [address] [place] [address] Plt 275 150 - 400 K/cumm [facility] Comment:Testing performed by : [facility], [address] [place] [address] MPV 8.7 6.8 - 10.4 fL [facility] Comment:Testing performed by : [facility], [address] [place] [address] RBC 4.36 3.90 - 5.20 M/cumm [facility] Comment:Testing performed by : [facility], [address] [place] [address] MCV 93.0 81.3 - 96.4 fL [facility] Comment:Testing performed by : [facility], [address] [place], [place] [phone] MCH 30.3 27.1 - 33.3 pg [facility] Comment:Testing performed by : [facility], [address] [place] [address] MCHC 32.6 32.3 - 35.7 g/dL [facility] Comment:Testing performed by : [facility], [address] [place] [address] RDW CV 13.1 11.1 - 14.9 % [facility] Comment:Testing performed by : [facility], [address] [place], [place] [id number] NRBC abs 0.00 0.00 - 0.01 K/cumm [facility] Comment:Testing performed by : [facility], [address] [place], [place] [phone] Blood 12/07/2024 11:0 8 AM POLICE INSPECTOR 12/07/2024 11:38 AM POLICE INSPECTOR Narrative [facility] - 12/07/2024 11:42 AM POLICE INSPECTOR Draw monthly us Salima Lin MD LAB BLOOD ORDERABLES Final R esult [facility] Department [place] [address] * eGFR (12/07/2024 10:56 AM POLICE INSPECTOR) eGFR See Comment >=60 Comment: Interpretive Data [...] reviewed 2021. Blood 12/07/2024 10:5 6 AM POLICE INSPECTOR 12/07/2024 11:25 AM POLICE INSPECTOR Salima Lin MD LAB BLOOD ORDERABLES Edited Result - Final Performing Organization Address [facility] de Phone Number [facility] [place] [address] * Homocysteine (12/07/2024 10:56 AM POLICE INSPECTOR) Homocysteine 14.8 0.0 - 15.0 mcmol/L Blood 12/07/2024 10:5 6 AM POLICE INSPECTOR 12/07/2024 12:45 PM POLICE INSPECTOR Narrative [facility] - 12/07/2024 1:27 PM POLICE INSPECTOR Draw monthly Salima Lin MD LAB BLOOD ORDERABLES Final R esult Performing Organization Address [facility] de Phone Number [facility] Department [place] [employer] [place] [address] * Comprehensive metabolic panel (12/07/2024 10:56 AM POLICE INSPECTOR) Sodium See Comment 135 - 145 mmol/L Comment:Credited: Sample inv estigated and is suggestive of an improper collection (e.g., IV fluid contamination, improper tube type). Deleted at the Request of Donya Marquez RN on 12/07/2024 12:20:20 POLICE INSPECTOR by kera . Potassium, pl See Comment 3.3 - 4.9 mmol/L [facility] Comment: Repeated and Verified Critical result called to and read back by Donya THURMAN) on 12/07/2024 12:20:58 POLICE INSPECTOR to kera. Credited: Sample investigated and is suggestive of an improper collection (e.g., IV fluid contamination, improper tube type). Deleted at the Request of Donya Marquez RN on 12/07/2024 12:20:20 POLICE INSPECTOR by kera . Chloride See Comment 97 - 110 mmol/L [facility] Comment:Credited: Sample inv estigated and is suggestive of an improper collection (e.g., IV fluid contamination, improper tube type). Deleted at the Request of Donya Marquez RN on 12/07/2024 12:20:20 POLICE INSPECTOR by kera . CO2 See Comment 22 - 32 mmol/L [facility] Comment:Credited: Sample inv estigated and is suggestive of an improper collection (e.g., IV fluid contamination, improper tube type). Deleted at the Request of Donya Marquez RN on 12/07/2024 12:20:20 POLICE INSPECTOR by kera . Anion gap See Comment 2 - 15 mmol/L [facility] Comment:Credited: Sample inv estigated and is suggestive of an improper collection (e.g., IV fluid contamination, improper tube type). Deleted at the Request of Donya Marquez RN on 12/07/2024 12:20:20 POLICE INSPECTOR by kera . BUN See Comment 6 - 25 mg/dL [facility] Comment:Credited: Sample inv estigated and is suggestive of an improper collection (e.g., IV fluid contamination, improper tube type). Deleted at the Request of Donya Marquez RN on 12/07/2024 12:20:20 POLICE INSPECTOR by kera . Creatinine See Comment 0.60 - 1.10 mg/dL [facility] Comment:Credited: Sample inv estigated and is suggestive of an improper collection (e.g., IV fluid contamination, improper tube type). Deleted at the Request of Donya Marquez RN on 12/07/2024 12:20:20 POLICE INSPECTOR by kera . Glucose See Comment 70 - 199 mg/dL [facility] Comment: Credited: Sample investigated and is suggestive of an improper collection (e.g., IV fluid contamination, improper tube type). Deleted at the Request of Donya Marquez RN on 12/07/2024 12:20:20 POLICE INSPECTOR by kera . Interpretive Data Fasting glucose [...] See Comment 8.5 - 10.3 mg/dL [facility] Comment: Repeated and Verified Critical result called to and read back by Donya THURMAN) on 12/07/2024 12:20:58 POLICE INSPECTOR to kera. Credited: Sample investigated and is suggestive of an improper collection (e.g., IV fluid contamination, improper tube type). Deleted at the Request of Donya aMrquez RN on 12/07/2024 12:20:20 POLICE INSPECTOR by kera . Bilirubin, total See Comment 0.1 - 1.2 mg/dL [facility] Comment:Credited: Sample inv estigated and is suggestive of an improper collection (e.g., IV fluid contamination, improper tube type). Deleted at the Request of Donya Marquez RN on 12/07/2024 12:20:20 POLICE INSPECTOR by kera . Protein, pl See Comment 6.5 - 8.5 g/dL [facility] Comment:Credited: Sample inv estigated and is suggestive of an improper collection (e.g., IV fluid contamination, improper tube type). Deleted at the Request of Donya Marquez RN on 12/07/2024 12:20:20 POLICE INSPECTOR by kera . Albumin See Comment 3.5 - 5.0 g/dL [facility] Comment:Credited: Sample inv estigated and is suggestive of an improper collection (e.g., IV fluid contamination, improper tube type). Deleted at the Request of Donya Marquez RN on 12/07/2024 12:20:20 POLICE INSPECTOR by kera . Alk phos See Comment 40 - 130 Units/L [facility] Comment:Credited: Sample inv estigated and is suggestive of an improper collection (e.g., IV fluid contamination, improper tube type). Deleted at the Request of Donya Marquez RN on 12/07/2024 12:20:20 POLICE INSPECTOR by kera . ALT See Comment 7 - 45 Units/L [facility] Comment:Credited: Sample inv estigated and is suggestive of an improper collection (e.g., IV fluid contamination, improper tube type). Deleted at the Request of Donya Marquez RN on 12/07/2024 12:20:20 POLICE INSPECTOR by kera . AST See Comment 10 - 45 Units/L [facility] Comment:Credited: Sample inv estigated and is suggestive of an improper collection (e.g., IV fluid contamination, improper tube type). Deleted at the Request of Donya Marquez RN on 12/07/2024 12:20:20 POLICE INSPECTOR by kera . Blood 12/07/2024 10:5 6 AM POLICE INSPECTOR 12/07/2024 11:25 AM POLICE INSPECTOR Narrative [facility] - 12/07/2024 12:40 PM POLICE INSPECTOR Draw monthly us Salima Lin MD LAB BLOOD ORDERABLES Edited Result - Final [facility] [place] [address] * Hepatitis panel, acute (10/18/2021 4:17 PM POLICE INSPECTOR) Hep A IgM Nonreactive Nonreactive [facility] Comment: Interpretive Data: If Hep A IgM Ab is reported as Equivocal, a new sample should be drawn in two weeks for testing. Current interpretive data was last revised on 20. Hep B core IgM Nonreactive Nonreactive [facility] Comment: Interpretive Data If HepB Core IgM Ab is reported as Equivocal, a new sample should be drawn in two weeks for testing. Current interpretive data was last revised on 20. Hep C Ab Nonreactive Nonreactive [facility] Comment:Antibodies to HCV no t detected. Does NOT exclude the possibility of recent exposure to HCV. HepBsAg Nonreactive Nonreactive [facility] Blood 10/18/2021 4:17 PM POLICE INSPECTOR 10/18/2021 4:43 PM POLICE INSPECTOR German Nelson MD LAB MICROBIOLOGY - GENERAL ORDERABLES Edited Result - Final [facility] [place] [address] from Last 3 Months or Most Recently Relevant to Health Maintenance Insurance [employer] [facility] Advance Directives For more information, please contact: [phone] Documents on File Type Date Recorded Patient Spanish Interpreter Expl anation ADVANCE DIRECTIVE 10/17/2021 4:06 PM [...] 6:21 PM 08/30/2022 11:31 PM Care Teams Director Of Child Welfare Services Relationship Specialty Start Date End Date Herminio Amador PA [address] [place] [address] PCP - General Internal Medicine 09/26/24 [place] [address] [facility] [place] [address] 06/20/21 German Dobbins, TIRE TRIMMER HAND Speech Language Pathologist Speech Therapy 04/22/18
--- OUTSIDE RECORDS SUMMARY | 2025-02-24 17:58 | XMS_ITS | Encounter Summary ---
Author Organization [facility] Address [address] [place] [address] Phone Care Team Providers Care Power Plant Superintendent Name Role Phone Tyshawn Gonzales MD Unavailable [phone] German Dobbins Unavailable Unavailable Tyshawn Gonzales MD Primary Care Provider [phone] Herminio Amador Primary Care Provider + Encounter Details Date Type Department Care Team (Latest Contact Info) Description 09/23/2023 Orders Only [facility] Scanning, Provider Social History Tobacco Use Types Packs/Day Years Used Date Smoking Tobacco: Never Smokeless Tobacco: Never Alcohol Use Standard Drinks/Week Comments Never 0 [...] declined 10/23/2022 How often do you attend holiness or alevism serv ices? Patient declined 10/23/2022 Do you belong to any clubs o r organizations such as holiness groups, unions, fraternal or athletic groups, or [...] place to sleep or slept in a group home (including now)? Patient refused 10/23/2022 Personal Safety Answer Date Recorded Have you ever been in or are you currently in a harmful physical or emotional relationship or is someone making you feel afraid or unsafe? 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 Gender Identity Not on file Sexual Orientation Not on file documented as of this encounter Plan of Treatment Not on file documented as of this encounter Procedures Procedure Name Priority Date/Time Associated Diagnosis Comments SCAN - LABS 09/23/2023 documented in this encounter Results * SCAN - LABS (09/23/2023) us Provider Scanning Final Result documented in this encounter Visit Diagnoses Not on filedocumented in this encounter Care Teams Power Plant Superintendent Relationship Specialty Start [place] [id number] [place] [address] PCP - General Pediatrics 11/20/21 09/25/24 Herminio Amador PA [address] [place] [address] [place] [address] PCP - General Internal Medicine 09/26/24 [place] [address] [place] [address] 06/20/21 German Dobbins, AGRICULTURE PROFESSOR Speech Language Pathologist Speech Therapy 04/22/18 documented as of this encounter
--- OUTSIDE RECORDS SUMMARY | 2025-02-24 17:58 | XMS_ITS | Encounter Summary ---
Author Organization [facility] Address [address] [place] [address] Care Team Providers Care Plating Operator Name Role Phone Tyshawn Gonzales MD Primary Care Provider [phone] Encounter Details Date Type Department Care Team (Late st Contact Info) Description 07/15/2005 Outpatient Historical [facility] Donya Mcclellan MD [address] [facility] [place] [id number] Er, Authorized P NO ADDRESS ON FILE CONTUSION PERIOCULAR (Primary Dx) Social History Tobacco Use Types Packs/Day Years Used Date Smoking Tobacco: Never Assessed Comments Unknown Sex and Gender Information Value Date Recorded Sex Assigned at Not on file 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
--- OUTSIDE RECORDS SUMMARY | 2025-02-24 17:58 | XMS_ITS | Data Portability ---
Author Organization [place] - [facility], Main Office Address [address] [place] [address] Assessment No assessment recorded. Plan of Treatment Reminders Order Date Submit Date Provider Last Modified By Organization Details Last Modified Time Details Appointments Follow Up 30 2024 01:00P M JUAN JOSE Greer Not available Not available Not available Follow Up 15 2024 03:15P OSCAR Elizondo Not available Not available Not available Lab CBC w/ auto diff 2024 025 [facility] (Lab), [address] [place], [address], 12/09/2024 14:45:18 CMP, serum or plasma 2024 025 [facility] (Lab), [address] [place], [address], 12/09/2024 14:45:18 lipid panel, serum 2024 025 [facility] (Lab), [address] [place], [address], 12/09/2024 14:45:18 TSH + free T4, serum 2024 025 [facility] (Lab), [address] [place], [address], 12/09/2024 14:45:18 HbA1c (hemoglob in A1c), blood 2024 025 [facility] (Lab), [address] [place], [address], 12/09/2024 14:45:18 Referral None recorded. Procedures None recorded. Surgeries None recorded. Imaging None recorded. Medication Orders Givlaari 189 mg/mL subcutane ous solution 2024 025 [email or web address] Not available 01/08/2025 09:08:55 Givlaari 189 mg/mL subcutane ous solution 2024 025 Not available 12/08/2024 16:13:55 Givlaari 189 mg/mL subcutane ous solution 2023 024 [email or web address] 00 Not available 12/08/2024 14:59:34 Givlaari 189 mg/mL subcutane ous solution 2023 024 [email or web address] 00 Not available 12/08/2024 14:59:34 Givlaari 189 mg/mL subcutane ous solution 2023 024 [email or web address] 00 Not available 12/08/2024 14:59:34 Patient TargetsNo targets recorded. Patient InstructionsNo instructions recorded. Reason for Referral None Reported. Results Created Date Observation Date Name Description Value Unit Range Abnormal Flag Note LastModifiedBy Organization Detail LastModifiedTime 02/02/2002/01/2025 US, liver No observ ation record ed. [address], [address], 02/01/2025 12:42:48 Result Notes None recorded. Problems Name Problem SNOMED Code Status Onset Date Resolution Date Notes Provider Name and Address Organization Details Recorded Time Dysuria 16315122 Active 2022 Not Available [facility] 18:43:24 Acute intermitte nt porphyria 954140818 Active 2022 frequent seizures , on Keppra Not Available [facility] 18:43:24 Posttrauma tic stress disorder 48390690 Active 2022 Not Available [facility] 18:43:24 Obese 585226077 Active 2022 Not Available [facility] 4 18:43:24 Essential hypertensi on 79557040 Active 2022 Not Available [facility] 4 18:43:24 Nausea 081246307 Active 2022 Not Available [facility] 4 18:43:24 Attention deficit hyperactiv ity disorder, predominan tly inattentiv e type 31566031 Active 2022 Not Available [facility] 4 18:43:24 Liver enzymes level above reference range 125534148 Active 2022 Not Available [facility] 4 18:43:24 Insomnia 025687942 Active 2022 Not Available [facility] 4 18:43:24 Wound 091792943 Active 2023 Not Available [facility] 4 18:43:24 Ulcer of baltazar 277477142 Active 2023 left Not Available [facility] 4 18:43:24 Porphyruri a 25367304 Active 2023 Rocio Melendez RN null, [facility] 4 14:39:03 Abrasion 222822148 Active 2023 Mattie Simmons RN null, [facility] 4 12:20:48 Adult health examinatio n Active 2024 JUAN JOSE Greer [address] [place] [address], [address] , [email or web address] [facility] 5 16:37:30 Notes:see list of medication s she cannot tolerate because of Acute Intermittent Porphyria Some problems listed in Documents: #[id number], #[id number] could not be added to this patient's chart. Please review these documents and add these problems to the patient's chart manually as needed. Problem Notes None recorded. Procedures Surgical History Date Name Laterality Status Provider Name and Address Organization Details Recorded Time tonsillectomy completed Sarah Kenny MA [employer] [facility] 04/16/2023 10:10:05 Imaging Results Imaging Date Name Status LastModified by Organizatio n Details LastModified Time 02/01/2025 [facility] [address] [facility], [place], [address], 02/01/2025 12:42:48 Procedure Notes None recorded. Medical Equipment None Reported. Allergies Allergen ID Allergen Name Allergen Category Reaction Reaction Severity Criticality Documentation Date Start Date Code Code System Note Provider Name and Address Organization Details Recorded Time 14045 Substance with sulfonami de structure and antibacte rial mechanism of action (substanc e) medicatio n Not available Not available Not available 04/16/2023 [id number] Hamilton, [facility] [employer] 10:00:40 16787 Product containin g penicilli n (product) medicatio n Not available Not available Not available 04/16/2023 [id number] RI [employer] [facility] 10:00:51 40321 latex environme nt,medica tion hives Not available Not available 08/05/2024 61362 91 RxNorm CALIN Ashley, [facility] 4 09:16:17 Medications Name Sig Start Date Stop Date Status Note LastModified by Organization Details LastModified Time Prescriptio n - Prior Authorizati on Request active Not Available Not Available N ot Available labetalol 200 mg tablet TAKE 1/2 TABLET BY MOUTH TWICE DAILY active Not Available Not Available No t Available clindamycin HCl 300 mg capsule TAKE 1 CAPSULE BY MOUTH THREE TIMES DAILY FOR 10 DAYS 08/05 completed Not Available Not Available Not Available alprazolam 1 mg tablet TAKE 1 TABLET BY MOUTH THREE TIMES DAILY NEEDED active Not Available Not Available No t Available levetiracet am 500 mg tablet TAKE 4 TABLETS BY MOUTH TWICE DAILY 12/08 completed Not Available Not Available Not Available ondansetron HCl 8 mg tablet TAKE 1 TABLET BY MOUTH THREE TIMES DAILY NEEDED 08/05 completed Not Available Not Available Not Available phenazopyri dine 200 mg tablet 12/08 completed Not Available Not Available Not Available metronidazo le 500 mg tablet TAKE 1 TABLET BY MOUTH TWICE DAILY FOR 7 DAYS 08/05 completed Not Available Not Available Not Available ciprofloxac in 500 mg tablet Take 1 tablet every 12 hours by oral route for 10 days. 08/05 completed Not Available Not Available Not Available omeprazole 40 mg capsule,del ayed release TAKE 1 CAPSULE BY MOUTH TWICE DAILY active Not Available Not Available No t Available ondansetron 8 mg disintegrat ing tablet DISSOLVE 1 TABLET ON THE TONGUE EVERY DAY NEEDED active Not Available Not Available No t Available ziprasidone 20 mg capsule TAKE 1 CAPSULE BY MOUTH EVERY DAY IN THE EVENING active Not Available Not Available No t Available meclizine 25 mg tablet active Not Available Not Available Not Available hydrocodone 7.5 mg-acetamin ophen 325 mg tablet TAKE 1 TABLET BY MOUTH EVERY 4 TO 6 HOURS FOR 7 DAYS 04/16 completed Not Available Not Available Not Available tobramycin 0.3 % eye drops INSTILL 1 DROP IN AFFECTED EYE THREE TIMES DAILY FOR 7 DAYS 04/16 completed Not Available Not Available Not Available mupirocin 2 % topical ointment APPLY A SMALL AMOUNT TO THE AFFECTED AREA THREE TIMES DAILY active Not Available Not Available No t Available ziprasidone 40 mg capsule TAKE 1 CAPSULE BY MOUTH EVERY DAY IN THE MORNING active Not Available Not Available No t Available gentamicin 40 mg/mL injection solution 12/08 completed Not Available Not Available Not Available dextroamphe tamine-amph etamine ER 30 mg 24hr capsule,ext end release TAKE 2 CAPSULES EVERY DAY BY MOUTH IN THE MORNING active Not Available Not Available No t Available guanfacine 2 mg tablet TAKE 1 TABLET BY MOUTH EVERY DAY AT BEDTIME active Not Available Not Available No t Available azithromyci n 500 mg tablet TAKE 4 TABLETS BY MOUTH 1 TIME 08/05 completed Not Available Not Available Not Available escitalopra m 20 mg tablet TAKE 1 TABLET BY MOUTH EVERY DAY IN THE MORNING active Not Available Not Available No t Available nitrofurant oin monohydrate /macrocryst als 100 mg capsule 08/05 completed Not Available Not Available Not Available folic acid active Not Available Not Av ailable Not Available levetiracet am 1,000 mg tablet TAKE 2 TABLETS BY MOUTH TWICE DAILY active Not Available Not Available No t Available Slynd 4 mg (28) tablet TAKE 1 TABLET BY MOUTH DAILY 12/08 completed Not Available Not Available Not Available Givlaari 189 mg/mL subcutaneou s solution Inject 1.4 mL every month by subcutane ous route for 1 day. active Not Available Not Available No t Available Givlaari 267 mg /ml injection monthly 12/08 completed Not Available Not Available Not Available Vitals Date Recorded Body height Body mass index (BMI) Body weight Body temperature Heart rate Respiratory rate Oxygen saturation Oxygen saturation in Arterial blood by Pulse oximetry Pain severity - 0-10 verbal numeric rating [Score] - Reported Systolic blood pressure Diastolic blood pressure Provider Name and Address Organization Details Last Updated DateTime 165.1 cm 39.6 kg/m2 480557. 68 g 97.3 [degF] 88 /min 24 /min 98 % 98 % 0 96 mm[Hg] 60 mm[Hg] Blaire Reyes RN [email or web address] 14:51:58 Social History Question Answer Notes LastModified by Organizat ion Details LastModified Time Tobacco Smoking Status Never Smoker LELE Chow, [facility] 04/16/2023 10:09:50 What Is Your Level Of Alcohol Consumption? Occasional [email or web address] Information not available 04/16/2023 What Is Your Level Of Caffeine Consumption? Occasional [email or web address] Information not available 04/16/2023 Do You Use Your Seat Belt Or Car Seat Routinely? Yes [email or web address] Information not available 04/16/2023 Do You Participate In Social Media? Yes [email or web address] Information not available 04/16/2023 Do You Feel Stressed (tense, Restless, Nervous, Or Anxious, Or Unable To Sleep At Night)? [id number] [email or web address] Information not available 04/16/2023 Do You Use Any Illicit Or Recreational Drugs? No [email or web address] Information not available 04/16/2023 Sex: Unknown Functional Status None recorded. Mental Status None recorded. Family History Relationship Description Onset Age of this Age Resolved Age Notes LastModified by Organization Details LastModified Time Unspecified Relation Acute intermittent porphyria self [email or web address] Not available 11/2022 10:07:48 Unspecified Relation Epilepsy self [email or web address] Not available 11/2022 10:07:59 Mother Family history of malignant neoplasm [email or web address] Not available 11/2022 10:08:29 Medical History No medical history recorded. Gynecological HistoryNo gynecological history recorded. Obstetrics History GPAL:G 0 P 0 0 0 0 Past Encounters Encounter ID Performer Location Encounter Start Date Encounter Closed Date Diagnosis/Indication Diagnosis SNOMED-CT Code Diagnosis ICD10 Code Diagnosis Note [id number] JUAN JOSE Greer [facility] [address] [place] [address] [place] [address] 04/16/2023 09:49:34 04/16/2023 10:35:01 Dysuria 88960430 R30.0 Posttrauma tic stress disorder 49379860 F43.10 Acute inte rmittent porphyria 023937986 E80.21 Obese 237801049 E66.9 [id number] JUAN JOSE Greer [facility] [place] [address] [address] 07/24/2023 09:50:45 07/24/2023 10:55:51 Acute intermittent porphyria 023422078 E80.21 Attention deficit hyperactivity disorder, predominantly inattentive type 70681793 F90.0 Liver enzy mes level above reference range 308014337 R74.01 Posttrauma tic stress disorder 90716505 F43.10 [id number] JUAN JOSE Greer [facility] [place] [address] 08/26/2023 09:55:32 08/26/2023 10:25:03 Attention deficit hyperactivity disorder, predominantly inattentive type 91192460 F90.0 Insomnia 813017271 G47.0 0 [id number] JUAN JOSE Greer [facility] [place] [address] 10/15/2023 12:12:10 11/12/2023 16:22:51 Acute intermittent porphyria 525406975 E80.21 [id number] JUAN JOSE Greer [facility] [address] [facility] [place] [address] 12/16/2023 16:34:11 12/29/2023 11:50:14 Wound 892723707 T14.90XA Posttrauma tic stress disorder 27118454 F43.10 Ulcer of baltazar 957487203 L97.320 [id number] JUAN JOSE Greer [facility] [address] [facility] [address] , [place] [address] 01/14/2024 14:00:59 01/27/2024 18:10:23 Acute intermittent porphyria 333764140 E80.21 [id number] JUAN JOSE Greer [facility] [address] [facility] [place] [address] 02/11/2024 14:00:10 05/09/2024 17:32:06 Porphyruria 65424701 E80.21 [id number] JUAN JOSE Greer [facility] [address] [facility] [place] [address] 03/10/2024 14:13:31 03/29/2024 15:18:02 Porphyruria 57234885 E80.21 [id number] JUAN JOSE Greer [facility] [address] [facility] [place] [address] 04/07/2024 14:11:44 04/27/2024 14:16:12 Porphyruria 57058290 E80.21 [id number] JUAN JOSE Greer [facility] [address] [facility] [place] [address] 05/12/2024 13:57:21 05/16/2024 13:46:04 Porphyruria 75030134 E80.21 [id number] JUAN JOSE Greer [facility] [address] [place] [address] 06/09/2024 14:05:54 06/09/2024 14:38:02 Porphyruria 35859061 E80.21 [id number] JUAN JOSE Greer [facility] [address] [place] [address] y , [place] [address] 07/07/2024 14:11:04 07/11/2024 12:00:00 Porphyruria 29491589 E80.21 [id number] Swathi Orozco, [facility] [address] [facility], [address] [address] 08/04/2024 13:27:23 08/04/2024 14:30:32 [id number] JUAN JOSE Greer [facility] [address] [place] [address] y , [place] [address] 08/04/2024 15:03:05 08/04/2024 15:13:58 Porphyruria 40035637 E80.21 [id number] JUAN JOSE Greer [facility] [address] [place] [address] [place] [address] 08/05/2024 09:11:44 08/05/2024 09:32:25 Insomnia 416514258 G47.00 Essential hypertension 85188919 I10 Acute inte rmittent porphyria 658872185 E80.21 Attention deficit hyperactivity disorder, predominantly inattentive type 12573967 F90.0 Obese 573933875 E66.9 Posttrauma tic stress disorder 77216302 F43.10 [id number] Swathi Orozco [facility] [address] [place] [address], [address] [address] 08/25/2024 15:56:06 08/25/2024 17:32:31 [id number] JUAN JOSE Greer [facility] [address] [place] [address] [place] [address] 09/01/2024 15:55:11 10/12/2024 12:10:08 Porphyruria 62854075 E80.21 [id number] JUAN JOSE Greer [facility] [address] [facility] [place] [address] 09/29/2024 14:17:23 12/29/2024 13:47:09 Porphyruria 91514303 E80.21 [id number] JUAN JOSE Greer [address] [address] 10/27/2024 14:03:24 10/27/2024 14:10:30 Porphyruria 60380907 E80.21 [id number] [facility] [address] [place] [address] 11/23/2024 15:51:38 11/23/2024 16:48:39 [id number] JUAN JOSE Greer [address] [address] 12/08/2024 14:39:33 12/08/2024 15:39:14 Acute intermittent porphyria 283096375 E80.21 Diabetes m ellitus screening 528862647 Z13.1 Hyperlipid emia screening 507220173 Z13.220 Screening for disorder 974312868 Z13.9 Thyroid di sorder screening 749100773 Z13.29 Adult heal th examination 772723381 Z00.00 [id number] Jabier Perales MD [address] [address] 01/05/2025 13:59:16 01/05/2025 14:21:42 Acute intermittent porphyria 812313194 E80.21 [id number] Swathi Orozco SHANN[facility] [address] [place] [address] 02/15/2025 15:57:55 02/15/2025 16:33:14 Health Concerns Section Related Observation LastModified by Organization Detai ls LastModified Time None Recorded Concern Status LastModified by Organization Details LastModified Time None Recorded Advance Directives Directive None Recorded Payers Encounter Date Sequence Insurance Name Policy Number Policy Foy Covered Member ID Foy Member ID Guarantor Name 09/01/2024 1 [facility] ON OR AFTER 05/16/21 (MEDICAID REPLACEMENT - HMO) Ashlee Calderon [id number] Mary Anne Denzel 09/29/2024 1 [facility] ON OR AFTER 05/16/21 (MEDICAID REPLACEMENT - HMO) Ashleefredi Calderon [id number] Mary Anne Denzel 10/27/2024 1 [facility] ON OR AFTER 05/16/21 (MEDICAID REPLACEMENT - HMO) Ashlee Calderon [id number] Mary Anne Denzel 12/08/2024 1 [facility] ON OR AFTER 05/16/21 (MEDICAID REPLACEMENT - HMO) Ashleefredi Calderon [id number] Mary Anne Denzel 01/05/2025 1 [facility] ON OR AFTER 05/16/21 (MEDICAID REPLACEMENT - HMO) Ashleefredi Calderon [id number] Mary Anne Denzel Notes Date Note Type Note Provider Name a hi Address Organization Details Recorded Time 12/08/2024 text/html no changes JUAN JOSE Greer [address] [place] [address], [place] [address], [place], [address], [facility] 12/12/2024 16:38:17 OBGyn Episode No OBEpisode recorded.
[2025-02-24 18:03] VITALS: BP 151/96; PULSE 100; RESP 18; TEMP 36.8; O2SAT 100
--- NOTE | 2025-02-24 18:03 | ED_ITS ---
HPI - Female Genitourinary General Chief complaint: [employer] <Monserrat Fierro APRN - Last Filed: 02/24/25 18:06> Stated complaint: 9 weeks preg, bleeding/cramping <Monserrat Fierro APRN - Last Filed: 02/24/25 18:06> Time Seen by Provider: 02/24/25 17:55 <Monserrat Fierro APRN - Last Filed: 02/24/25 18:06> Focused HPI: Patient is a 24-year-old female who presents to the ER with vaginal bleeding and cramping. She reports she is currently 9 weeks . Patient reports her last menstrual period was December. She denies any urinary symptoms, nausea and vomiting, or recent fevers. Patient reports she has had two previous abortions, so this is her 1st she has not terminated. She reports her OBGYN is Dr. Blank. Patient noticed two blood clots throughout the day. She denies any other medical history relevant to this ER visit. GENERAL: Well-appearing, well-nourished, and in no acute distress. HEAD: Normocephalic, atraumatic. CHEST: Clear to auscultation. ?No respiratory distress. HEART: Regular rate and rhythm.? NEURO: ?Alert and oriented x3. Patient screened in triage and initial orders placed.? ?Additional care and disposition to be based upon?diagnostic testing and treatment. <Monserrat Fierro APRN - Last Filed: 02/24/25 18:06> Focused HPI: Patient is a 24-year-old female who presents to the ER with vaginal bleeding and cramping. She reports she is currently 9 weeks . Patient reports her last menstrual period was December 30, 2024. She denies any urinary symptoms, nausea and vomiting, or recent fevers. Patient reports she has had two previous abortions, so this is her 1st she has not terminated. She reports her OBGYN is Dr. Blank. Patient noticed two blood clots throughout the day. She denies any other medical history relevant to this ER visit. GENERAL: Well-appearing, well-nourished, and in no acute distress. HEAD: Normocephalic, atraumatic. CHEST: Clear to auscultation. ?No respiratory distress. HEART: Regular rate and rhythm.? NEURO: ?Alert and oriented x3. Patient screened in triage and initial orders placed.? ?Additional care and disposition to be based upon?diagnostic testing and treatment. <Shelli Mckeon PA-C - Last Filed: 02/24/25 22:27> Related Data Home medications: Home Medications ?Medication ?Instructions ?Recorded ?Confirmed ?Last Taken ?Type dextroamphetamine-amphetamine ER 30 mg PO DAILY 10/06/22 11/18/23 Unknown History 30 mg 24hr capsule,extend release (Adderall XR) escitalopram oxalate 20 mg tablet 20 mg PO DAILY 10/06/22 11/18/23 Unknown History labetalol 300 mg tablet 600 mg PO Q12H 10/06/22 11/18/23 Unknown History ondansetron HCl 8 mg tablet 8 mg PO Q8H 10/06/22 11/18/23 Unknown History prochlorperazine maleate 10 mg 10 mg PO Q6H PRN 10/06/22 11/18/23 Unknown History tablet (Compazine) ziprasidone HCl 20 mg capsule 20 mg PO QHS 10/06/22 11/18/23 Unknown History (Geodon) ziprasidone HCl 40 mg capsule 40 mg PO QAM 10/06/22 11/18/23 Unknown History (Geodon) givosiran 189 mg/mL subcutaneous mg subcut 08/26/23 11/18/23 Unknown History solution (Givlaari) omeprazole 40 mg capsule,delayed mg PO 08/26/23 11/18/23 Unknown History release <Monserrat Fierro, CECY - Last Filed: 02/24/25 18:06> Allergies/Adverse reactions: Allergies Allergy/AdvReac Type Severity Reaction Status Date / Time latex Allergy Hives Verified 02/24/25 17:56 Penicillins Allergy Hives Verified 02/24/25 17:56 Sulfa (Sulfonamide Allergy Hives Verified 02/24/25 17:56 Antibiotics) <Monserrat Fierro, [employer]ATING [employer]SEM[employer] SUPERVISOR - Last Filed: 02/24/25 18:06> Review of Systems 2 Review of Systems: All systems reviewed & are unremarkable except as noted in HPI and below <Shelli Mckeon PA-C - Last Filed: 02/24/25 22:27> PMFSH Past Medical History Medical History: Medical History (Updated 02/24/25 @ 22:23 by Shelli Mckeon PA-C) Exposure to sexually transmitted disease (STD) Encounter for removal of intrauterine contraceptive device Porphyria History of epilepsy <Monserrat Fierro APRN - Last Filed: 02/24/25 18:06> Surgical History Surgical History: Surgical History (Updated 11/18/23 @ 14:28 by Mtatie Talbert [facility]) History of gynecological procedure (~06/2021) mirena iud insertion History of tonsillectomy Port-A-Cath in place port was removed in june 2023 <Monserrat Fierro APRN - Last Filed: 02/24/25 18:06> Family History Family History: Family History Grandparent Diabetes mellitus <Monserrat Fierro APRN - Last Filed: 02/24/25 18:06> Social History Social History: Social History Smoking status: Never smoker Alcohol intake: never Substance use: never Living arrangements: with family Occupation/Education: unemployed Gender identity (if verbalized by the patient): Female Sexual Orientation (if Verbalized by the Patient): Straight or Heterosexual <Monserrat Fierro APRN - Last Filed: 02/24/25 18:06> Exam 2 Narrative: GENERAL: Well-appearing, well-nourished, and in no acute distress. HEAD: Normocephalic, atraumatic. EYES: EOMI. CHEST: Clear to auscultation. No respiratory distress. No wheezes rales or rhonchi HEART: Regular rate and rhythm. No murmur heard. Normal peripheral pulses. ABDOMEN: Soft, nontender, nondistended, normal active bowel sounds. EXTREMITIES: Normal range of motion. No edema. SKIN: Warm, dry, no rash. NEURO: No focal deficits. Alert and oriented x3. PSYCH: Normal mood and affect <Shelli Mckeon PA-C - Last Filed: 02/24/25 22:27> Course Course Emergency Course: Patient updated on her workup and agrees with plan of care. Declines Cytotec at this time <Shelli Mckeon PA-C - Last Filed: 02/24/25 22:27> Consultations Consultation #1: Spoke with Dr. Blank about patient and workup. Patient may be offered Cytotec. She can follow up in clinic at 9:00 a.m. on Thursday. Will send order for repeat quantitative hCG <Shelli Mckeon PA-C - Last Filed: 02/24/25 22:27> Date: 02/24/25 <Shelli Mckeon PA-C - Last Filed: 02/24/25 22:27> Vital Signs Vital signs: Vital Signs Temperature 98.2 F 02/24/25 18:03 Pulse Rate 100 02/24/25 18:03 Respiratory Rate 18 02/24/25 18:03 Blood Pressure 151/96 H 02/24/25 18:03 Pulse Oximetry 100 02/24/25 18:03 Temperature 97.5 F L 02/24/25 21:26 Pulse Rate 94 02/24/25 21:26 Respiratory Rate 16 02/24/25 21:26 Blood Pressure 136/83 02/24/25 21:26 Pulse Oximetry 98 02/24/25 21:26 <Monserrat Fierro APRN - Last Filed: 02/24/25 18:06> Vital Signs Temperature 98.2 F 02/24/25 18:03 Pulse Rate 100 02/24/25 18:03 Respiratory Rate 18 02/24/25 18:03 Blood Pressure 151/96 H 02/24/25 18:03 Pulse Oximetry 100 02/24/25 18:03 Temperature 97.5 F L 02/24/25 21:26 Pulse Rate 94 02/24/25 21:26 Respiratory Rate 16 02/24/25 21:26 Blood Pressure 136/83 02/24/25 21:26 Pulse Oximetry 98 02/24/25 21:26 <Shelli Mckeon PA-C - Last Filed: 02/24/25 22:27> MDM - Female Genitourinary MDM Narrative Medical decision making narrative: Patient presents emergency department for bleeding in 1st trimester . She is afebrile and nontoxic appearing. Her vitals are stable. CBC with leukocytosis to 15.4. Hemoglobin is normal. Metabolic panel some evidence of dehydration. Patient hydrated with a L of IV fluids in the ED. Patient is O negative. Received RhoGAM. Obstetric ultrasound shows intrauterine with pole seen in the cervix area. No heart tones. Spoke with Dr. Blank about patient and workup. Patient may be offered Cytotec. She can follow up in clinic at 9:00 a.m. on Thursday. Will send order for repeat quantitative hCG. Patient updated on her workup and agrees with plan of care. Declines Cytotec at this time. She was given warnings to return to the ER <Shelli Mckeon PA-C - Last Filed: 02/24/25 22:27> Differential Diagnosis Differential diagnosis: Likely other (Miscarriage, incomplete miscarriage) <Shelli Mckeon PA-C - Last Filed: 02/24/25 22:27> Lab Data Attestation: I reviewed the patient's lab results. <Shelli Mckeon PA-C - Last Filed: 02/24/25 22:27> Result diagrams: 02/24/25 20:20 02/24/25 20:20 <Monserrat Fierro APRN - Last Filed: 02/24/25 18:06> Labs: Lab Results 02/24/25 Range/Units 20:20 WBC 15.4 H (4.5-10.0) K/mm3 RBC 4.43 (4.2-5.4) M/mm3 Hgb 13.8 (12.0-15.0) g/dL Hct 41.6 (37.0-47.0) % MCV 93.9 (80-100) fl MCH 31.2 (26-34) pg MCHC 33.2 (32-36) g/dl RDW 12.0 (11.5-14.5) % Plt Count 329 (150-375) k/mm3 MPV 9.5 (7.4-10.4) fl Immature Gran % (Auto) 0.3 (0-0.5) % Neut % (Auto) 68.2 (45.5-73.1) % Lymph % (Auto) 22.8 (18.3-44.2) % [place] % (Auto) 7.9 (2.6-8.5) % Eos % (Auto) 0.3 (0-4.4) % Baso % (Auto) 0.5 (0.2-1.2) % Lymph # (Auto) 3.51 H (0.9-3.2) K/mm3 [place] # (Auto) 1.2 H (0.1-0.6) K/mm3 Eos # (Auto) 0.1 (0-0.3) K/mm3 Baso # (Auto) 0.1 (0.0-0.1) K/mm3 Abs Immat Gran (auto) 0.05 H (0.00-0.031) K/mm3 Absolute Neuts (auto) 10.5 H (1.3-6.7) K/mm3 Absolute Nucleated RBC 0.000 (0.0-0.012) K/mm3 Nucleated RBC % 0.0 (0.0-0.2) % PT 13.8 (11.1-14.7) Seconds INR 1.0 APTT 29.0 (22.3-36.8) Seconds Sodium 140 (137-145) mmol/L Potassium 4.3 (3.4-5.0) mmol/L Chloride 104 (98-107) mmol/L Carbon Dioxide 23 (22-30) mmol/L Anion Gap 13 H (4-12) mmol/L BUN 21 H (7-17) mg/dL Creatinine 1.02 H (0.7-1.0) mg/dL Estim Creat Clear Calc 92 ml/min Estimated GFR > 60 (59 - ) Glucose 98 (65-110) mg/dL Calcium 9.7 (8.4-10.2) mg/dL Total Bilirubin 0.3 (0.2-1.3) mg/dL AST 43 H (14-36) U/L ALT 33 (6-35) U/L Alkaline Phosphatase 181 H (38-126) U/L Total Protein 9.0 H (6.3-8.2) g/dL Albumin 4.6 (3.5-5.1) g/dL Beta HCG, Quant 1238.00 mIU/ML Blood Type O Negative Antibody Screen Negative Screen Not Reportable Baby's Blood Type Not Reportable Baby's JANNETH Not Reportable Doses of RhIg Required 1 <Monserrat Fierro, PLATING [employer]SEM[employer] SUPERVISOR - Last Filed: 02/24/25 18:06> Lab Results 02/24/25 Range/Units 20:20 WBC 15.4 H (4.5-10.0) K/mm3 RBC 4.43 (4.2-5.4) M/mm3 Hgb 13.8 (12.0-15.0) g/dL Hct 41.6 (37.0-47.0) % MCV 93.9 (80-100) fl MCH 31.2 (26-34) pg MCHC 33.2 (32-36) g/dl RDW 12.0 (11.5-14.5) % Plt Count 329 (150-375) k/mm3 MPV 9.5 (7.4-10.4) fl Immature Gran % (Auto) 0.3 (0-0.5) % Neut % (Auto) 68.2 (45.5-73.1) % Lymph % (Auto) 22.8 (18.3-44.2) % [place] % (Auto) 7.9 (2.6-8.5) % Eos % (Auto) 0.3 (0-4.4) % Baso % (Auto) 0.5 (0.2-1.2) % Lymph # (Auto) 3.51 H (0.9-3.2) K/mm3 [place] # (Auto) 1.2 H (0.1-0.6) K/mm3 Eos # (Auto) 0.1 (0-0.3) K/mm3 Baso # (Auto) 0.1 (0.0-0.1) K/mm3 Abs Immat Gran (auto) 0.05 H (0.00-0.031) K/mm3 Absolute Neuts (auto) 10.5 H (1.3-6.7) K/mm3 Absolute Nucleated RBC 0.000 (0.0-0.012) K/mm3 Nucleated RBC % 0.0 (0.0-0.2) % PT 13.8 (11.1-14.7) Seconds INR 1.0 APTT 29.0 (22.3-36.8) Seconds Sodium 140 (137-145) mmol/L Potassium 4.3 (3.4-5.0) mmol/L Chloride 104 (98-107) mmol/L Carbon Dioxide 23 (22-30) mmol/L Anion Gap 13 H (4-12) mmol/L BUN 21 H (7-17) mg/dL Creatinine 1.02 H (0.7-1.0) mg/dL Estim Creat Clear Calc 92 ml/min Estimated GFR > 60 (59 - ) Glucose 98 (65-110) mg/dL Calcium 9.7 (8.4-10.2) mg/dL Total Bilirubin 0.3 (0.2-1.3) mg/dL AST 43 H (14-36) U/L ALT 33 (6-35) U/L Alkaline Phosphatase 181 H (38-126) U/L Total Protein 9.0 H (6.3-8.2) g/dL Albumin 4.6 (3.5-5.1) g/dL Beta HCG, Quant 1238.00 mIU/ML Blood Type O Negative Antibody Screen Negative Screen Not Reportable Baby's Blood Type Not Reportable Baby's JANNETH Not Reportable Doses of RhIg Required 1 <Shelli Mckeon PA-C - Last Filed: 02/24/25 22:27> Imaging Data Radiologist's impression: ITS Impressions Obstetrics Ultrasound 02/24/25 19:12 IMPRESSION: Intrauterine with pole seen in the cervix area. No heart tone demonstrated. <Shelli Mckeon PA-C - Last Filed: 02/24/25 22:27> Critical Care Time Critical Care Time Critical Care Time: No <Shelli Mckeon PA-C - Last Filed: 02/24/25 22:27> Discharge Plan Discharge Clinical Impression: Incomplete miscarriage <Monserrat Fierro APRN - Last Filed: 02/24/25 18:06> Patient Disposition: Home <CECY Escobar Last Filed: 02/24/25 18:06> Condition: Stable <CECY Escobar Last Filed: 02/24/25 18:06> Instructions: Miscarriage (ED) <CECY Escobar Last Filed: 02/24/25 18:06> Additional Instructions: Return to the ER if you experience fever, chest pain, shortness of breath, abdominal pain with nausea and vomiting, you are unable to keep down liquids or solids, you are soaking through a pad/hour or any other symptoms that are concerning to you Rest. Remain well hydrated. Tylenol or Ibuprofen as needed for pain. I sent an order electronically for you to have your hormone repeated. Do this on Thursday (02/26) Follow up with your OB. He said he will see you at 9AM on Thursday (02/27) <Monserrat Fierro APRN - Last Filed: 02/24/25 18:06> Patient Language: Tamazight <Monserrat Fierro APRN - Last Filed: 02/24/25 18:06> Prescriptions: No Action dextroamphetamine-amphetamine [Adderall XR] 30 mg capsule,extended release 24hr 30 mg PO DAILY escitalopram oxalate 20 mg tablet 20 mg PO DAILY labetalol 300 mg tablet 600 mg PO Q12H ondansetron HCl 8 mg tablet 8 mg PO Q8H prochlorperazine maleate [Compazine] 10 mg tablet 10 mg PO Q6H PRN ziprasidone HCl [Geodon] 20 mg capsule 20 mg PO QHS Rx Instructions: give with food (meal/snack) ziprasidone HCl [Geodon] 40 mg capsule 40 mg PO QAM Rx Instructions: give with food (meal/snack) Givlaari 189 mg/mL solution subcut omeprazole 40 mg capsule,delayed release(DR/EC) PO Slynd 4 mg (28) tablet 1 tablet PO DAILY Qty: 28 3RF <Monserrat Fierro APRN - Last Filed: 02/24/25 18:06> Other Ambulatory Orders: Beta HCG Quantitative (Routine) Timeframe: 2 Days Location: Determined by Patient Ordered By: Shelli Mckeon <Monserrat Fierro APRN - Last Filed: 02/24/25 18:06> Follow-up/Referrals: Darrick Blank MD [Physician] - PHYSICIAN,REVIEW MANAGER [Non-Staff] - <Monserrat Fierro APRN - Last Filed: 02/24/25 18:06>
--- OUTSIDE RECORDS SUMMARY | 2025-02-24 19:54 | XMS_ITS | Clinical Summary ---
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 Comment: Interpretive Data Percent cell count reference ranges are not reported, since discordance with absolute values may lead to misinterpretation of CBC data. Current Interpretive Data was last revised on 2018. Testing performed by: [facility], [address] [place] [phone] Eosinophil pct 0.2 % [facility] Comment: Interpretive Data Percent cell count reference ranges are not reported, since discordance with absolute values may lead to misinterpretation of CBC data. Current Interpretive Data was last revised on 2018. Testing performed by: [facility], [address] [place] [phone] Basophil pct 0.3 % [facility] Comment: Interpretive Data Percent cell count reference ranges are not reported, since discordance with absolute values may lead to misinterpretation of CBC data. Current Interpretive Data was last revised on 2018. Testing performed by: [facility], [address] [place] [address] Blood 12/07/2024 11:0 8 AM PRESS SET UP 12/07/2024 11:38 AM PRESS SET UP Salima Lin MD LAB BLOOD ORDERABLES Final R esult [facility] Department [place] [address] * (ABNORMAL) CBC with auto differential (12/07/2024 11:08 AM PRESS SET UP) WBC 14.4(H) 3.8 - 9.9 K/cumm Comment:Testing performed by : [facility], [address] [place] [address] Hgb 13.2 11.9 - 15.5 g/dL [facility] Comment:Testing performed by : [facility], [address] [place] [address] Hct 40.6 35.6 - 45.5 % [facility] Comment:Testing performed by : [facility], [address] [place] [address] Plt 275 150 - 400 K/cumm [facility] Comment:Testing performed by : [facility], [address] [place] [address] MPV 8.7 6.8 - 10.4 fL [facility] Comment:Testing performed by : [facility], [address] [place] [address] RBC 4.36 3.90 - 5.20 M/cumm [facility] Comment:Testing performed by : [facility], [address] [place] [address] MCV 93.0 81.3 - 96.4 fL [facility] Comment:Testing performed by : [facility], [address] [place] [address] MCH 30.3 27.1 - 33.3 pg [facility] Comment:Testing performed by : [facility], [address] [place] [phone] MCHC 32.6 32.3 - 35.7 g/dL [facility] Comment:Testing performed by : [facility], [address] [place] [phone] RDW CV 13.1 11.1 - 14.9 % [facility] Comment:Testing performed by : [facility], [address] [place] [phone] NRBC abs 0.00 0.00 - 0.01 K/cumm [facility] Comment:Testing performed by : [facility], [address] [place] [phone] Blood 12/07/2024 11:0 8 AM PRESS SET UP 12/07/2024 11:38 AM PRESS SET UP Narrative [facility] - 12/07/2024 11:42 AM PRESS SET UP Draw monthly us Salima Lin MD LAB BLOOD ORDERABLES Final R esult [facility] Department [place] [address] * eGFR (12/07/2024 10:56 AM PRESS SET UP) eGFR See Comment >=60 Comment: Interpretive Data [...] reviewed 2021. Blood 12/07/2024 10:5 6 AM PRESS SET UP 12/07/2024 11:25 AM PRESS SET UP Salima Lin MD LAB BLOOD ORDERABLES Edited Result - Final Performing Organization Address [facility] Co de Phone Number [facility] [place] [address] * Homocysteine (12/07/2024 10:56 AM PRESS SET UP) Homocysteine 14.8 0.0 - 15.0 mcmol/L Blood 12/07/2024 10:5 6 AM PRESS SET UP 12/07/2024 12:45 PM PRESS SET UP Narrative [facility] - 12/07/2024 1:27 PM PRESS SET UP Draw monthly Salima Lin MD LAB BLOOD ORDERABLES Final R esult Performing Organization Address [facility] [place] [address] * Comprehensive metabolic panel (12/07/2024 10:56 AM PRESS SET UP) Sodium See Comment 135 - 145 mmol/L Comment:Credited: Sample inv estigated and is suggestive of an improper collection (e.g., IV fluid contamination, improper tube type). Deleted at the Request of Donya Marquez RN on 12/07/2024 12:20:20 PRESS SET UP by kera . Potassium, pl See Comment 3.3 - 4.9 mmol/L [facility] Comment: Repeated and Verified Critical result called to and read back by Donya THURMAN) on 12/07/2024 12:20:58 PRESS SET UP to kera. Credited: Sample investigated and is suggestive of an improper collection (e.g., IV fluid contamination, improper tube type). Deleted at the Request of Donya Marquez RN on 12/07/2024 12:20:20 PRESS SET UP by kera . Chloride See Comment 97 - 110 mmol/L [facility] Comment:Credited: Sample inv estigated and is suggestive of an improper collection (e.g., IV fluid contamination, improper tube type). Deleted at the Request of Donya Marquez RN on 12/07/2024 12:20:20 PRESS SET UP by kera . CO2 See Comment 22 - 32 mmol/L [facility] Comment:Credited: Sample inv estigated and is suggestive of an improper collection (e.g., IV fluid contamination, improper tube type). Deleted at the Request of Donya Marquez RN on 12/07/2024 12:20:20 PRESS SET UP by kera . Anion gap See Comment 2 - 15 mmol/L [facility] Comment:Credited: Sample inv estigated and is suggestive of an improper collection (e.g., IV fluid contamination, improper tube type). Deleted at the Request of Donya Marquez RN on 12/07/2024 12:20:20 PRESS SET UP by kera . BUN See Comment 6 - 25 mg/dL [facility] Comment:Credited: Sample inv estigated and is suggestive of an improper collection (e.g., IV fluid contamination, improper tube type). Deleted at the Request of Donya Marquez RN on 12/07/2024 12:20:20 PRESS SET UP by kera . Creatinine See Comment 0.60 - 1.10 mg/dL [facility] Comment:Credited: Sample inv estigated and is suggestive of an improper collection (e.g., IV fluid contamination, improper tube type). Deleted at the Request of Donya Marquez RN on 12/07/2024 12:20:20 PRESS SET UP by kera . Glucose See Comment 70 - 199 mg/dL [facility] Comment: Credited: Sample investigated and is suggestive of an improper collection (e.g., IV fluid contamination, improper tube type). Deleted at the Request of Donya Marquez RN on 12/07/2024 12:20:20 PRESS SET UP by kera . Interpretive Data Fasting glucose [...] See Comment 8.5 - 10.3 mg/dL [facility] Comment: Repeated and Verified Critical result called to and read back by Donya THURMAN) on 12/07/2024 12:20:58 PRESS SET UP to kera. Credited: Sample investigated and is suggestive of an improper collection (e.g., IV fluid contamination, improper tube type). Deleted at the Request of Donya Marquez RN on 12/07/2024 12:20:20 PRESS SET UP by kera . Bilirubin, total See Comment 0.1 - 1.2 mg/dL [facility] Comment:Credited: Sample inv estigated and is suggestive of an improper collection (e.g., IV fluid contamination, improper tube type). Deleted at the Request of Donya Marquez RN on 12/07/2024 12:20:20 PRESS SET UP by kera . Protein, pl See Comment 6.5 - 8.5 g/dL [facility] Comment:Credited: Sample inv estigated and is suggestive of an improper collection (e.g., IV fluid contamination, improper tube type). Deleted at the Request of Donya Marquez RN on 12/07/2024 12:20:20 PRESS SET UP by kera . Albumin See Comment 3.5 - 5.0 g/dL [facility] Comment:Credited: Sample inv estigated and is suggestive of an improper collection (e.g., IV fluid contamination, improper tube type). Deleted at the Request of Donya Marquez RN on 12/07/2024 12:20:20 PRESS SET UP by kera . Alk phos See Comment 40 - 130 Units/L [facility] Comment:Credited: Sample inv estigated and is suggestive of an improper collection (e.g., IV fluid contamination, improper tube type). Deleted at the Request of Donya Marquez RN on 12/07/2024 12:20:20 PRESS SET UP by kera . ALT See Comment 7 - 45 Units/L [facility] Comment:Credited: Sample inv estigated and is suggestive of an improper collection (e.g., IV fluid contamination, improper tube type). Deleted at the Request of Donya Marquez RN on 12/07/2024 12:20:20 PRESS SET UP by kera . AST See Comment 10 - 45 Units/L [facility] Comment:Credited: Sample inv estigated and is suggestive of an improper collection (e.g., IV fluid contamination, improper tube type). Deleted at the Request of Donya Marquez RN on 12/07/2024 12:20:20 PRESS SET UP by kera . Blood 12/07/2024 10:5 6 AM PRESS SET UP 12/07/2024 11:25 AM PRESS SET UP Narrative [facility] - 12/07/2024 12:40 PM PRESS SET UP Draw monthly us Salima Lin MD LAB BLOOD ORDERABLES Edited Result - Final Performing Organization Address City/State/[facility] Co de Phone Number [facility] Department [place] [address] * Hepatitis panel, acute (10/18/2021 4:17 PM PRESS SET UP) Hep A IgM Nonreactive Nonreactive [facility] Comment: Interpretive Data: If Hep A IgM Ab is reported as Equivocal, a new sample should be drawn in two weeks for testing. Current interpretive data was last revised on 20. Hep B core IgM Nonreactive Nonreactive [facility] Comment: Interpretive Data If HepB Core IgM Ab is reported as Equivocal, a new sample should be drawn in two weeks for testing. Current interpretive data was last revised on 20. Hep C Ab Nonreactive Nonreactive [facility] Comment:Antibodies to HCV no t detected. Does NOT exclude the possibility of recent exposure to HCV. 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 [place] [address] 06/20/21 German Dobbins, SITE ADMINISTRATOR Speech Language Pathologist Speech Therapy 04/22/18
--- OUTSIDE RECORDS SUMMARY | 2025-02-24 19:55 | XMS_ITS | Data Portability ---
Author Organization [facility] [place] Address [address] [place] [address] Assessment Encounter Date Assessment Date Assessment LastModified by Organization Details LastModified Time 02/13/2025 02/13/2025 Patient is ___weeks . Discussed plan. [email or web address] Not available 02/13/2025 15:09:50 Plan of Treatment Reminders Order Date Submit Date Provider Last Modified By Organization Details Last Modified Time Details Appointments U/S OB FIRST LOOK 2024 09:00A M ULTRASOUND Not available Not available Not available OB NEW 2024 09:30A M Helga BLANK MD Not available Not available Not available Lab pregnan cy test, [facility] [address] [facility] [address], [address], [place], [address], 02/05/2024 15:28:09 HBsAg (hepati tis B surface Ag), serum 2023 024 [facility] (Lab), [address], [place], [address], 02/06/2024 17:26:20 Referral None recorde d. Procedures None recorde d. Surgeries None recorde d. Imaging None recorde d. Medication Orders None recorde d. Patient TargetsNo targets recorded. Patient InstructionsNo instructions recorded. Reason for Referral None Reported. Results Created Date Observation Date Name Description Value Unit Range Abnormal Flag Note LastModifiedBy Organization Detail LastModifiedTime 02/05/20 24 02/05/2024 CT/GC AND TRICH OMONA S VAGIN BOB (RRNA ), URINE chlamydia trachomatis, PCR Negati ve negati ve Not Available [facility] (Lab) [address], [place], [address], 02/06/2024 12:16:20 02/05/20 24 02/05/2024 CT/GC AND TRICH OMONA S VAGIN BOB (RRNA ), URINE neisseria gonorrhoeae, PCR Negati ve negati ve Not Available [facility] (Lab) [address], [place], [address], 02/06/2024 12:16:20 02/05/20 24 02/05/2024 CT/GC AND TRICH OMONA S VAGIN BOB (RRNA ), URINE trichomonas vaginalis ribosomal RNA (rrna) Negati ve negati ve Not Available [facility] (Lab) [address], [place], [address], 02/06/2024 12:16:20 02/05/20 24 02/05/2024 HBSAG /HCV/ HIV/R DC hepatitis B surface antigen Non-re active non-re active This assay was perfo rmed using [employer] n reage nts and test kits. Value s obtai mk with other assay metho ds or kits canno t be used inter meraz eably . Not Available [facility] (Lab) [address], [place], [address], 02/06/2024 17:26:19 02/05/20 24 02/05/2024 HBSAG /HCV/ HIV/R DC hepatitis C antibody Non-re active non-re active Antib odies to HCV Not Detec dao, does not exclu de the possi bilit y of expos ure to HCV. Not Available [facility] (Lab) [address], [place], [address], 02/06/2024 17:26:19 02/05/20 24 02/05/2024 HBSAG /HCV/ HIV/R DC HIV antigen/anti body Nonrea ctive nonrea ctive HIV-1 antig en and HIV-1 /HIV- 2 antib odies were not detec dao. No labor atory evide nce of HIV infec tion. Not Available [facility] (Lab) [address], [place], [address], 02/06/2024 17:26:19 02/05/20 24 02/05/2024 HBSAG /HCV/ HIV/R DC RPR screen Nonrea ctive nonrea ctive Not Available [facility] (Lab) [address], [place], [address], 02/06/2024 17:26:19 02/05/20 24 02/05/2024 pregn mau test, urine HCG negati ve Not Available [facility] [address], [place], [address], 02/05/2024 15:22:08 02/14/20 25 02/13/2025 IMAGE GUIDE D PAP, REFLE X HPV IF ASCUS ONLY image guided Pap, reflex HPV ASCUS only SEE RESULT S BELOW CASE REPOR T: Cytol ogy Gynec ologi ben Repor t Case: [id number] Autho curtis g Provi rosa isela: Diamond Blank MD Colle cted: 02/13 1551 Order ing Locat ion: [place] [facility] Recei joycelyn: 02/14 0924 First Scree n: Maggie Gibbs , CT Speci men: Scree orville Pap - Image d, Cervi x STATE MENT OF ADEQU ACY: Satis facto ry for evalu ation Trans forma tion zone compo nent prese nt ----- ----- ----- ----- ----- ----- ----- ----- ----- ----- ----- ----- ----- ----- ----- ----- ----- ---- FINAL DIAGN OSIS: Negat gabby for Intra epith kevin [place] or Anahy matias (NIL) . Elect kayyjonas neff jennifre d by Maggie Gibbs , SHANNON on 025 at 2008 CDT ----- ----- ----- ----- ----- ----- ----- ----- ----- ----- ----- ----- ----- ----- ----- ----- ----- ---- COMME NT: This speci men was revie wed by a Cytot echno logis t and/o r Patho logis t (as indic ated in this repor t) after evalu ation using the Thinp rep Imagi ng Syste m. CLINI BEN INFOR MATIO N: Menst rual Statu s: LMP (if appli cable ): Clini ben Histo ry/Pr eviou s Pap: Type of Neopl hernandez (if appli cable ): Signi fican t Clini ben Findi ngs: Other Histo ry: Hormo modesto (if appli cable ): PAP EDUCA TO L NOTE: The Pap Test is a scree orville test with an inher ent false negat gabby rate. Liqui d-bas ed sampl ing may decre ase, but will not elimi danilo, false negat gabby resul ts. A negat gabby resul t does not precl ude the prese nce and/o r devel opmen t of disea se, since the prese nce of abnor mal cells in the sampl e depen ds on the locat ion of the lesio n and sampl ing techn ique. Tori nued regul ar scree orville is the best metho d of cance r preve ntion . If repor dao cytol ogic findi ng do not corre late with physi ben and/o r histo rical findi ngs, furth er inves tigat ion is recom johanna d, as clini luz pugh nted. Not Available [facility] (Lab) [address], [place], [address], 02/16/2025 21:12:41 02/14/20 25 02/13/2025 TRICH OMONA S VAGIN BOB (RRNA ) trichomonas vaginalis ribosomal RNA (rrna) Negati ve negati ve Not Available [facility] (Lab) [address], [place], [address], 02/16/2025 21:12:42 02/14/20 25 02/13/2025 CT/GC (KALIA) , THINP REP VIAL chlamydia trachomatis, PCR Negati ve negati ve Not Available [facility] (Lab) [address], [place], [address], 02/16/2025 21:12:42 02/14/20 25 02/13/2025 CT/GC (KALIA) , THINP REP VIAL neisseria gonorrhoeae, PCR Negati ve negati ve Not Available [facility] (Lab) [address], [place], [address], 02/16/2025 21:12:42 02/14/20 25 02/13/2025 imagi ng/di agnos tic resul t No observ ation record ed. [email or web address] [facility] [address], [place], [address], 02/16/2025 19:46:16 Result Notes None recorded. Problems Name Problem SNOMED Code Status Onset Date Resolution Date Notes Provider Name and Address Organization Details Recorded Time Epilepsy 56820605 Active 2024 Ina alves [facility] 5 15:24:41 Acute intermittent porphyria 267823338 Active 2024 Ina alves [facility] 5 15:25:08 Attention deficit hyperactivity disorder 539398647 Active 2024 Ina alves [facility] 5 15:25:21 History of hepatitis A 002595771 Active 2024 Ina alves [facility] 5 15:26:15 46329982 Active 2024 Samantha Reagan [facility] 16:00:21 Problem Notes None recorded. Procedures Surgical History Date Name Laterality Status Provider Name and Address Organization Details Recorded Time 025 Date of Last Pap Smear completed [facility] 02/13/2025 15:25:52 024 portoenterostomy completed [facility] 02/13/2025 15:28:21 024 percutaneous transluminal insertion of subcutaneous port completed [facility] 02/13/2025 15:32:17 023 tonsillectomy completed [facility] 02/13/2025 15:28:16 021 termination of completed [facility] 02/13/2025 15:28:05 019 termination of completed [facility] 02/13/2025 15:27:59 Imaging Results Imaging Date Name Status LastModified by Organiz ation Details LastModified Time 02/13/2025 imaging/diagn ostic result active [email or web address] [facility] [address], [place], [address], 02/16/2025 19:46:16 Procedure Notes None recorded. Medical Equipment None Reported. Allergies Allergen ID Allergen Name Allergen Category Reaction Reaction Severity Criticality Documentation Date Start Date Code Code System Note Provider Name and Address Organization Details Recorded Time Product containin g penicilli n (product) medicatio n Not available Not available Not available 02/05/2024 82600 8001 SNOMED Donna Cornellboom [facility] 14:51:25 14013 Substance with sulfonami de structure and antibacte rial mechanism of action (substanc e) medicatio n Not available Not available Not available 02/05/2024 57531 8003 SNOMED Donna Anderson [facility] 14:51:30 74676 latex environme nt,medica tion Not available Not available Not available 02/05/2024 37196 91 RxNorm Donna Anderson [facility] 14:51:38 Medications Name Sig Start Date Stop Date Status Note LastModified by Organization Details LastModified Time Adderall 30 mg tablet Take 1 tablet twice a day by oral route. 02/13 completed Not Available Not Available Not Available labetalol 200 mg tablet TAKE 1/2 TABLET BY MOUTH TWICE DAILY active Not Available Not Available No t Available alprazolam 1 mg tablet TAKE 1 TABLET BY MOUTH THREE TIMES DAILY NEEDED 02/13 completed Not Available Not Available Not Available levetiracet am 500 mg tablet TAKE 4 TABLETS BY MOUTH TWICE DAILY 02/13 completed Not Available Not Available Not Available ondansetron HCl 8 mg tablet TAKE 1 TABLET BY MOUTH THREE TIMES DAILY NEEDED 02/13 completed Not Available Not Available Not Available ziprasidone 20 mg capsule TAKE 1 CAPSULE BY MOUTH EVERY DAY IN THE EVENING 02/13 completed Not Available Not Available Not Available mupirocin 2 % topical ointment APPLY A SMALL AMOUNT TO THE AFFECTED AREA THREE TIMES DAILY 02/13 completed Not Available Not Available Not Available ziprasidone 40 mg capsule TAKE 1 CAPSULE BY MOUTH EVERY DAY IN THE MORNING active Not Available Not Available No t Available labetalol 100 mg tablet Take 1 tablet twice a day by oral route. 02/13 completed Not Available Not Available Not Available dextroamphe tamine-amph etamine ER 30 mg 24hr capsule,ext end release TAKE 2 CAPSULES EVERY DAY BY MOUTH IN THE MORNING active Not Available Not Available No t Available guanfacine 2 mg tablet TAKE 1 TABLET BY MOUTH EVERY DAY AT BEDTIME active Not Available Not Available No t Available escitalopra m 20 mg tablet TAKE 1 TABLET BY MOUTH EVERY DAY IN THE MORNING 02/13 completed Not Available Not Available Not Available omeprazole active Not Available Not Av ailable Not Available folic acid active Not Available Not Av ailable Not Available Keppra 02/13 completed Not Available Not Available Not Available levetiracet am 1,000 mg tablet TAKE 2 TABLETS BY MOUTH TWICE DAILY active Not Available Not Available No t Available Slynd 4 mg (28) tablet TAKE 1 TABLET BY MOUTH DAILY 02/13 completed Not Available Not Available Not Available Givlaari 189 mg/mL subcutaneou s solution active Not Available Not Available N ot Available Vitals Date Recorded Body height Body mass index (BMI) Body weight Systolic blood pressure Diastolic blood pressure Provider Name and Address Organization Details Last Updated DateTime 02/05/2024 165.1 cm 32.6 kg/m2 49024.82 g 106 mm[Hg] 71 mm[Hg] Donna Anderson [facility] 4 14:51:10 Date Recorded Body height Body mass index (BMI) Body weight Systolic blood pressure Diastolic blood pressure Provider Name and Address Organization Details Last Updated DateTime 02/13/2025 165.1 cm 40.8 kg/m2 798217.1 3 g 145 mm[Hg] 92 mm[Hg] Ina Thurman [facility] 15:11:42 Social History Question Answer Notes LastModified by Organizat ion Details LastModified Time Tobacco Smoking Status Former Smoker Ina Thurman [facility], [facility] 02/13/2025 15:27:47 Do You Have An Advance Directive? No [email or web address] Information not available 02/13/2025 What Is Your Level Of Alcohol Consumption? None [email or web address] Information not available 02/13/2025 If You Are , What Was Your Level Of Alcohol Consumption Prior To ? Occasional [email or web address] Information not available 02/13/2025 Are You Blind Or Do You Have Difficulty Seeing? Yes Information not available 02/13/2025 What Is Your Level Of Caffeine Consumption? Occasional [email or web address] Information not available 02/13/2025 How Much Tobacco Do You Chew? None [email or web address] Information not available 02/13/2025 In The 14 Days Before Symptom Onset, Have You Had Close Contact With A Laboratory-confir med COVID-19 While That Case Was Ill? No [email or web address] Information not available 02/13/2025 In The 14 Days Before Symptom Onset, Have You Had Close Contact With A Person Who Is Under Investigation For COVID-19 While That Person Was Ill? No [email or web address] Information not available 02/13/2025 Have You Been To An Area Known To Be High Risk For COVID-19? No [email or web address] Information not available 02/13/2025 Are You Deaf Or Do You Have Serious Difficulty Hearing? No [email or web address] Information not available 02/13/2025 What Type Of Diet Are You Following? REGULAR [email or web address] Information not available 02/13/2025 Do You Or Have You Ever Used E-cigarettes Or Vape? Former User Of Electronic Cigarettes [email or web address] Information not available 02/13/2025 What Is The Highest Grade Or Level Of School You Have Completed Or The Highest Degree You Have Received? [id number] Information not available 02/13/2025 Are There Any Guns Present In Your Home? No Information not available 02/13/2025 Do You Use Protection During Sex? No [email or web address] Information not available 02/13/2025 Do You Use Your Seat Belt Or Car Seat Routinely? Yes [email or web address] Information not available 02/13/2025 Do You Have Smoke And Carbon Monoxide Detectors In Your Home? Yes [email or web address] Information not available 02/13/2025 How Much Tobacco Do You Smoke? No [email or web address] Information not available 02/13/2025 Do You Feel Stressed (tense, Restless, Nervous, Or Anxious, Or Unable To Sleep At Night)? [id number] [email or web address] Information not available 02/13/2025 Do You Use Any Illicit Or Recreational Drugs? No [email or web address] Information not available 02/13/2025 Do You Use Sunscreen Routinely? No [email or web address] Information not available 02/13/2025 Have You Used IV Drugs? No [email or web address] Information not available 02/13/2025 Do You Or Have You Ever Used Any Other Forms Of Tobacco Or Nicotine? Yes [email or web address] Information not available 02/13/2025 Sex: Unknown Functional Status Question Answer Note LastModified by Organizat ion Details LastModified Time Do you have difficulty walking or climbing stairs? No [email or web address] Information not available 02/13/2025 Are you able to walk? YESWOREST [email or web address] Information not available 02/13/2025 Are you able to care for yourself? Yes [email or web address] Information not available 02/13/2025 Do you have difficulty dressing or bathing? No [email or web address] Information not available 02/13/2025 What is your exercise level? Occasional [email or web address] Information not available 02/13/2025 Mental Status None recorded. Family History Relationship Description Onset Age of this Age Resolved Age Notes LastModified by Organization Details LastModified Time Mother Essential hypertension [email or web address] Not available 14:45:50 Medical History Condition Response Allergies (Food, seasonal, environmental ) N Other N Blood Transfusion N Drug/Latex Allergies/Reactions Y Breast Cancer N Dermatologic Disorders N Lung Disease N Defects or Inherited Disease Y Breast Problem N Gestational Diabetes N Hematologic disorders N Anesthesia Complications N History of STI Y Deep Vein Thrombosis N Polycystic ovary syndrome N Anxiety Disorder Y Autoimmune disease N Arthritis N Infertility N Polyps Y Acid Reflux (GERD) Y History of abnormal pap N Cancer N Stroke N Varicosities N Neurologic/Epilepsy Y Endometriosis N High Cholesterol N Headaches N Fibromyalgia N Kidney Disease N Heart Problems N Kidney or Bladder Problems N Thyroid Problems N GI Problems Y Eating Disorder N Anemia N Art (IVF or FET) N Psychiatric Illness Y Ovarian Cancer N Diabetes N Pulmonary (TB, Asthma) N Hepatitis/Liver Disease N No Past Medical History N Eczema N Urinary Tract Infection N Abuse/Domestic Violence N Asthma N Trauma/Violence N Depression/ depression Y Heart Disease N Pre-Eclampsia N Hypertension N Osteoporosis N Thrombophilias N Gynecological History Statement/Question Response Abnormal Pap N Date of Last Mammogram Date of LMP 12/17/2024 On BCP's at Conception? N N Was last menstrual period normal Y STIs/STDs Y HPV Vaccine Y Duration of Flow (days) 4 Current Control Method Date of Last Colonoscopy Frequency of Cycle (Q days) 4 Sexually Active? Y Date of DEXA bone scan Age of first menstrual cycle 14 Date of Last Pap Smear 02/13/2025 Sexual Problems? N LMP Definite N Obstetrics History GPAL:G 3 P 0 0 2 0 Type Value Induced 2 Living 0 Total 3 Past Encounters Encounter ID Performer Location Encounter Start Date Encounter Closed Date Diagnosis/Indication Diagnosis SNOMED-CT Code Diagnosis ICD10 Code Diagnosis Note [id number] MERI ARIAS MD [facility] [address] [address] 02/05/2024 14:22:02 02/15/2024 00:57:34 Venereal disease screening 569126236 Z11.3 Irregular periods 671378 07 N92.6 - periods overall monthly however different lengths of bleeding since IUD removal- likely 2/2 recent IUD removal, should regulate in 3-6 months after removal- rtc if bleeding remains abnormal [id number] Ashleigh Cruz [facility] [address] [address] 02/13/2025 13:46:30 02/13/2025 15:02:37 [id number] Darrick Blank MD [facility] [address] [place] [address] 02/13/2025 13:46:51 02/13/2025 16:08:04 Amenorrhea 04134976 N91.2 this patient is a 24-year-ol d female who presents for amenorrhea . She is a positive test. Ultrasound revealed a 1st trimester gestation. Patient has no complaints . We talked about early care. Talked about genetic screening. We talked about her ultrasound results. We talked about the 12 week ultrasound that has genetic screening components . She was given recommenda tions on exercise, diet, over-the-c ounter medication s. We reviewed her obstetric history. We reviewed her medical history. We reviewed her social history. She will begin routine care at her next visit Health Concerns Section Related Observation LastModified by Organization Detai ls LastModified Time None Recorded Concern Status LastModified by Organization Details LastModified Time None Recorded Advance Directives Directive N: Payers Encounter Date Sequence Insurance Name Policy Number Policy Foy Covered Member ID Foy Member ID Guarantor Name 02/05/2024 1 [facility] ON OR AFTER 05/16/21 (MEDICAID REPLACEMENT - HMO) Ashlee Calderon [id number] Ashlee Calderon 02/13/2025 1 [facility] ON OR AFTER 05/16/21 (MEDICAID REPLACEMENT - HMO) Ashlee Calderon [id number] Ashlee Calderon 02/13/2025 1 [facility] - DOS ON OR AFTER 21 (MEDICAID REPLACEMENT - HMO) Ashlee Calderon [id number] Ashlee Calderon Notes Date Note Type Note Provider Name and Address Organization Details Recorded Time 02/05/2024 text/html Patient presents to [facility] care. She reports she has been having irregular periods since IUD was removed in November. Mirena in place x2 years however was having some discomfort with IUD in place. Amenorrheic while in place. Reports monthly periods in November and December however Dec period only lasted 2 days. Has not yet had period in January. Denies hair growth, acne, weight gain, weight loss. Reports regularly timed periods prior to IUD placement, however different lengths of bleeding. Has not skipped months. No pain or heaviness. No family hx of breast, uterine, or ovarian cancer. MERI ARIAS MD [address], [place], [address], [facility] 02/13/2024 12:28:03 02/13/2025 text/html this patient is a 32-year-old female who presents for amenorrhea. She is a positive test. Ultrasound revealed a 1st trimester gestation. Patient has no complaints. We talked about early care. Talked about genetic screening. We talked about her ultrasound results. We talked about the 12 week ultrasound that has genetic screening components. She was given recommendations on exercise, diet, [id number] medications. We reviewed her obstetric history. We reviewed her medical history. We reviewed her social history. She will begin routine care at her next visit. Darrick Blank MD [address], [place], [address], [facility] 02/13/2025 16:03:07 OBGyn Episode Ob Episode Information Episode Created Date Number of Fetuses Patient Bloodtype Patient rh Status Prepregnancy Weight lbs Domestic Partner Domestic Partner Phone Father Name Welt Sole Layer Status 02/05/20 24 1 CLOSED Fetus Data First Name Last Name Admitted to NICU Weight (g) Sex Living Outcome Pediatric Complications Fetus ID Race Codes Race Delivery Type , Induced [id number] Jin Calculation Initial Jin Date Initial Exam Date Initial Exam Provider Initial Ultrasound Date Last Menstrual Period Date Ultra Sound Weeks Gestation 0 Eighteen To Twenty Week Jin Update Ultra Sound Date Fundal Height At Umbil Quickening Date Ultra Sound Latest Weeks Gestation Final Jin Confirmed By Final Jin Confirmed Date Final Jin Date Ultra Sound Latest Days Gestation 0 0 Menstrual History Last Menstrual Date Menses Monthly On Bcp Conception Prior Menses Frequency Hcg Plus Date Menarche Onset Age Delivery Information Delivery Date Delivery Type Labor Anesthesia Weeks Gestation Incision Type Labor Labor Length Hrs Delivered By Post Complications Tubal Sterilization Discharge Date Comments Discharge Information Feeding Method Contraceptive Method Maternal HG B and HCT Levels Ob Episode Information Episode Created Date Number of Fetuses Patient Bloodtype Patient rh Status Prepregnancy Weight lbs Domestic Partner Domestic Partner Phone Father Name Welt Sole Layer Status 02/25/20 25 1 OPEN Fetus Data First Name Last Name Admitted to NICU Weight (g) Sex Living Outcome Pediatric Complications Fetus ID Race Codes Race Delivery Type [id number] Jin Calculation Initial Jin Date Initial Exam Date Initial Exam Provider Initial Ultrasound Date Last Menstrual Period Date Ultra Sound Weeks Gestation 02/24/2025 0 Eighteen To Twenty Week Jin Update Ultra Sound Date Fundal Height At Umbil Quickening Date Ultra Sound Latest Weeks Gestation Final Jin Confirmed By Final Jin Confirmed Date Final Jin Date Ultra Sound Latest Days Gestation 0 0 Menstrual History Last Menstrual Date Menses Monthly On Bcp Conception Prior Menses Frequency Hcg Plus Date Menarche Onset Age Delivery Information Delivery Date Delivery Type Labor Anesthesia Weeks Gestation Incision Type Labor Labor Length Hrs Delivered By Post Complications Tubal Sterilization Discharge Date Comments Discharge Information Feeding Method Contraceptive Method Maternal HG B and HCT Levels Ob Episode Information Episode Created Date Number of Fetuses Patient Bloodtype Patient rh Status Prepregnancy Weight lbs Domestic Partner Domestic Partner Phone Father Name Welt Sole Layer Status 02/05/20 24 1 CLOSED Fetus Data First Name Last Name Admitted to NICU Weight (g) Sex Living Outcome Pediatric Complications Fetus ID Race Codes Race Delivery Type , Induced [id number] Jin Calculation Initial Jin Date Initial Exam Date Initial Exam Provider Initial Ultrasound Date Last Menstrual Period Date Ultra Sound Weeks Gestation 0 Eighteen To Twenty Week Jin Update Ultra Sound Date Fundal Height At Umbil Quickening Date Ultra Sound Latest Weeks Gestation Final Jin Confirmed By Final Jin Confirmed Date Final Jin Date Ultra Sound Latest Days Gestation 0 0 Menstrual History Last Menstrual Date Menses Monthly On [facility] Conception Prior Menses Frequency Hcg Plus Date Menarche Onset Age Delivery Information Delivery Date Delivery Type Labor Anesthesia Weeks Gestation Incision Type Labor Labor Length Hrs Delivered By Post Complications Tubal Sterilization Discharge Date Comments 9 Discharge Information Feeding Method Contraceptive Method Maternal HG B and HCT Levels
--- OUTSIDE RECORDS SUMMARY | 2025-02-24 19:55 | XMS_ITS | Clinical Summary ---
Author Organization [facility] Address [address] [place] [address] Phone Care Team Providers Care Terrazzo Mechanic Helper Name Role Phone Tyshawn Gonzales MD Primary Care Provider [phone] Allergies Active Allergy Reactions Criticality Noted Date [...] on file Legal Sex Female 5:17 AM GRIEVANCE COORDINATOR Gender Identity Not on file Sexual Orientation Not on file Last Filed Vital Signs Vital Sign Reading Time Taken Comments Blood Pressure 108/64 01/15/2017 11:03 AM GRIEVANCE COORDINATOR Pulse - - Temperature - - Respiratory Rate - - Oxygen Saturation - - Inhaled Oxygen Concentration - - Weight 72 kg (158 lb 12.8 oz) 01/15/2017 11:03 A M GRIEVANCE COORDINATOR Height 166 cm (5' 5.35 ) 01/15/2017 11:03 AM GRIEVANCE COORDINATOR Body Mass Index 26.14 01/15/2017 11:03 AM GRIEVANCE COORDINATOR Plan of Treatment Health Maintenance Due Date Last Done Comments CHLAMYDIA SCREENING (ANNUAL) 11-24 YEARS 2013 HPV VACCINES (1 - 3-dose series) 2017 DTAP/TDAP/TD VACCINES (1 - Tdap) 2021 HEPATITIS B VACCINES (1 of 3 - 19+ 3-dose series) 02/15 CERVICAL CANCER SCREENING 2023 HPV/Cotest (21-29) 2023 PAP SMEAR 2023 INFLUENZA VACCINE (#1) 2024 Care Teams Terrazzo Mechanic Helper Relationship Specialty [place] [id number] [place] [address] [place] [id number] PCP - General 07/15/05
--- OUTSIDE RECORDS SUMMARY | 2025-02-24 19:55 | XMS_ITS | CONTINUITY OF CARE DOCUMENT ---
Author Name morenita xavier Address Unknown Organization [facility] Address [address] [facility] [address] [place] [address] Phone [phone] Care Team Providers Care Senior Planning Manager Name Role Phone Chevy Munroe MD Unavailable [phone] ISAIAS SIERRA MD Unavailable INSURANCE PROVIDERS Payer name Policy type / Coverage type Menard red republican ID [employer] BETTER HEALTH do not u se after 17 Medicaid [id number]
--- OUTSIDE RECORDS SUMMARY | 2025-02-24 19:55 | XMS_ITS | Encounter Summary ---
Author Organization [facility] Address [address] [place] [address] Phone Care Team Providers Care Financial Compliance Examiner Name Role Phone Tyshawn Gonzales MD Unavailable [phone] German Dobbins Unavailable Unavailable Tyshawn Gonzales MD Primary Care Provider [phone] Herminio Amador Primary Care Provider + Encounter [...] declined 10/23/2022 How often do you attend druze or bahai serv ices? Patient declined 10/23/2022 Do you belong to any clubs o r organizations such as druze groups, unions, fraternal or athletic groups, or [...] place to sleep or slept in a prison (including now)? Patient refused 10/23/2022 Personal Safety Answer Date Recorded Have you ever been in or are you currently in a harmful physical or emotional relationship or is someone making you feel afraid or unsafe? 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 Gender Identity Not on file Sexual Orientation [...] on filedocumented in this encounter Care Teams Financial Compliance Examiner Relationship Specialty [place] [id number] [place] [id number] PCP - General Pediatrics 11/20/21 09/25/24 Herminio Amador PA [address] [place] [address] [place] [address] PCP - General Internal Medicine 09/26/24 [place] [id number] [place] [id number] 06/20/21 German Dobbins, DIRECTOR BIOSTATISTICS Speech Language Pathologist Speech Therapy 04/22/18 documented as of this encounter
--- OUTSIDE RECORDS SUMMARY | 2025-02-24 19:55 | XMS_ITS | Referral Summary ---
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 reference ranges are not reported, since discordance with absolute values may lead to misinterpretation of CBC data. Current Interpretive Data was last revised on 2018. Testing performed by: [facility], [address] [place] [phone] Monocyte pct 7.1 % [facility] Comment: Interpretive Data Percent cell count reference ranges are not reported, since discordance with absolute values may lead to misinterpretation of CBC data. Current Interpretive Data was last revised on 2018. Testing performed by: [facility], [address] [place] [phone] Eosinophil pct 0.2 % [facility] Comment: Interpretive Data Percent cell count reference ranges are not reported, since discordance with absolute values may lead to misinterpretation of CBC data. Current Interpretive Data was last revised on 2018. Testing performed by: [facility], [address] [place] [phone] Basophil pct 0.3 % [facility] Comment: Interpretive Data Percent cell count reference ranges are not reported, since discordance with absolute values may lead to misinterpretation of CBC data. Current Interpretive Data was last revised on 2018. Testing performed by: [facility], [address] [place] [address] Blood 12/07/2024 11:0 8 AM HOUSEKEEPING/LAUNDRY 12/07/2024 11:38 AM HOUSEKEEPING/LAUNDRY us Salima Lin MD LAB BLOOD ORDERABLES Final R esult [facility] [place] [address] * (ABNORMAL) CBC with auto differential (12/07/2024 11:08 AM HOUSEKEEPING/LAUNDRY) WBC 14.4(H) 3.8 - 9.9 K/cumm Comment:Testing performed by : [facility], [address] [place] [address] Hgb 13.2 11.9 - 15.5 g/dL CAROLINA PEREZ Comment:Testing performed by : [facility], [address] [place] [address] Hct 40.6 35.6 - 45.5 % CAROLINA PEREZ Comment:Testing performed by : [facility], [address] [place] [address] Plt 275 150 - 400 K/cumm CAROLINA PEREZ Comment:Testing performed by : [facility], [address] [place] [address] MPV 8.7 6.8 - 10.4 fL CAROLINA PEREZ Comment:Testing performed by : [facility], [address] [place] [address] RBC 4.36 3.90 - 5.20 M/cumm CAROLINA PEREZ Comment:Testing performed by : [facility], [address] [place] [address] MCV 93.0 81.3 - 96.4 fL CAROLINA PEREZ Comment:Testing performed by : [facility], [address] [place], [place] [phone] MCH 30.3 27.1 - 33.3 pg CAROLINA PEREZ Comment:Testing performed by : [facility], [address] [place] [phone] MCHC 32.6 32.3 - 35.7 g/dL [facility] Comment:Testing performed by : [facility], [address] [place] [phone] RDW CV 13.1 11.1 - 14.9 % [facility] Comment:Testing performed by : [facility], [address] [place], [place] [id number] NRBC abs 0.00 0.00 - 0.01 K/cumm [facility] Comment:Testing performed by : [facility], [address] [place], [place] [id number] Blood 12/07/2024 11:0 8 AM HOUSEKEEPING/LAUNDRY 12/07/2024 11:38 AM HOUSEKEEPING/LAUNDRY Narrative [facility] - 12/07/2024 11:42 AM HOUSEKEEPING/LAUNDRY Draw monthly us Salima Lin MD LAB BLOOD ORDERABLES Final R esult [facility] [place] [address] * eGFR (12/07/2024 10:56 AM HOUSEKEEPING/LAUNDRY) eGFR See Comment >=60 Comment: Interpretive Data [...] reviewed 2021. Blood 12/07/2024 10:5 6 AM HOUSEKEEPING/LAUNDRY 12/07/2024 11:25 AM HOUSEKEEPING/LAUNDRY Saliam Lin MD LAB BLOOD ORDERABLES Edited Result - Final Performing Organization Address [facility] de Phone Number [facility] [place] [address] * Homocysteine (12/07/2024 10:56 AM HOUSEKEEPING/LAUNDRY) Homocysteine 14.8 0.0 - 15.0 mcmol/L Blood 12/07/2024 10:5 6 AM HOUSEKEEPING/LAUNDRY 12/07/2024 12:45 PM HOUSEKEEPING/LAUNDRY Narrative [facility] - 12/07/2024 1:27 PM HOUSEKEEPING/LAUNDRY Draw monthly Salima Lin MD LAB BLOOD ORDERABLES Final R esult Performing Organization Address [facility] de Phone Number [facility] [place] [address] * Comprehensive metabolic panel (12/07/2024 10:56 AM HOUSEKEEPING/LAUNDRY) Sodium See Comment 135 - 145 mmol/L Comment:Credited: Sample inv estigated and is suggestive of an improper collection (e.g., IV fluid contamination, improper tube type). Deleted at the Request of Donya Marquez RN on 12/07/2024 12:20:20 HOUSEKEEPING/LAUNDRY by kera . Potassium, pl See Comment 3.3 - 4.9 mmol/L [facility] Comment: Repeated and Verified Critical result called to and read back by Donya THURMAN) on 12/07/2024 12:20:58 HOUSEKEEPING/LAUNDRY to kera. Credited: Sample investigated and is suggestive of an improper collection (e.g., IV fluid contamination, improper tube type). Deleted at the Request of Donya Marquez RN on 12/07/2024 12:20:20 HOUSEKEEPING/LAUNDRY by kera . Chloride See Comment 97 - 110 mmol/L [facility] Comment:Credited: Sample inv estigated and is suggestive of an improper collection (e.g., IV fluid contamination, improper tube type). Deleted at the Request of Donya Marquez RN on 12/07/2024 12:20:20 HOUSEKEEPING/LAUNDRY by kera . CO2 See Comment 22 - 32 mmol/L [facility] Comment:Credited: Sample inv estigated and is suggestive of an improper collection (e.g., IV fluid contamination, improper tube type). Deleted at the Request of Donya Marquez RN on 12/07/2024 12:20:20 HOUSEKEEPING/LAUNDRY by kera . Anion gap See Comment 2 - 15 mmol/L [facility] Comment:Credited: Sample inv estigated and is suggestive of an improper collection (e.g., IV fluid contamination, improper tube type). Deleted at the Request of Donya Marquez RN on 12/07/2024 12:20:20 HOUSEKEEPING/LAUNDRY by kera . BUN See Comment 6 - 25 mg/dL [facility] Comment:Credited: Sample inv estigated and is suggestive of an improper collection (e.g., IV fluid contamination, improper tube type). Deleted at the Request of Donya Marquez RN on 12/07/2024 12:20:20 HOUSEKEEPING/LAUNDRY by kera . Creatinine See Comment 0.60 - 1.10 mg/dL [facility] Comment:Credited: Sample inv estigated and is suggestive of an improper collection (e.g., IV fluid contamination, improper tube type). Deleted at the Request of Donya Marquez RN on 12/07/2024 12:20:20 HOUSEKEEPING/LAUNDRY by kera . Glucose See Comment 70 - 199 mg/dL [facility] Comment: Credited: Sample investigated and is suggestive of an improper collection (e.g., IV fluid contamination, improper tube type). Deleted at the Request of Donya Marquez RN on 12/07/2024 12:20:20 HOUSEKEEPING/LAUNDRY by kera . Interpretive Data Fasting glucose [...] See Comment 8.5 - 10.3 mg/dL [facility] Comment: Repeated and Verified Critical result called to and read back by Donya THURMAN) on 12/07/2024 12:20:58 HOUSEKEEPING/LAUNDRY to kera. Credited: Sample investigated and is suggestive of an improper collection (e.g., IV fluid contamination, improper tube type). Deleted at the Request of Donya Marquez RN on 12/07/2024 12:20:20 HOUSEKEEPING/LAUNDRY by kera . Bilirubin, total See Comment 0.1 - 1.2 mg/dL [place] [facility] Comment:Credited: Sample inv estigated and is suggestive of an improper collection (e.g., IV fluid contamination, improper tube type). Deleted at the Request of Donya Marquez RN on 12/07/2024 12:20:20 HOUSEKEEPING/LAUNDRY by kera . Protein, pl See Comment 6.5 - 8.5 g/dL [facility] Comment:Credited: Sample inv estigated and is suggestive of an improper collection (e.g., IV fluid contamination, improper tube type). Deleted at the Request of Donya Marquez RN on 12/07/2024 12:20:20 HOUSEKEEPING/LAUNDRY by kera . Albumin See Comment 3.5 - 5.0 g/dL [facility] Comment:Credited: Sample inv estigated and is suggestive of an improper collection (e.g., IV fluid contamination, improper tube type). Deleted at the Request of Donya Marquez RN on 12/07/2024 12:20:20 HOUSEKEEPING/LAUNDRY by kera . Alk phos See Comment 40 - 130 Units/L [facility] Comment:Credited: Sample inv estigated and is suggestive of an improper collection (e.g., IV fluid contamination, improper tube type). Deleted at the Request of Donya Marquez RN on 12/07/2024 12:20:20 HOUSEKEEPING/LAUNDRY by kera . ALT See Comment 7 - 45 Units/L [facility] Comment:Credited: Sample inv estigated and is suggestive of an improper collection (e.g., IV fluid contamination, improper tube type). Deleted at the Request of Donya Marquez RN on 12/07/2024 12:20:20 HOUSEKEEPING/LAUNDRY by kera . AST See Comment 10 - 45 Units/L [place] [facility] Comment:Credited: Sample inv estigated and is suggestive of an improper collection (e.g., IV fluid contamination, improper tube type). Deleted at the Request of Donya Marquez RN on 12/07/2024 12:20:20 HOUSEKEEPING/LAUNDRY by kera . Blood 12/07/2024 10:5 6 AM HOUSEKEEPING/LAUNDRY 12/07/2024 11:25 AM HOUSEKEEPING/LAUNDRY Narrative [place] [facility] - 12/07/2024 12:40 PM HOUSEKEEPING/LAUNDRY Draw monthly us Salima Lin MD LAB BLOOD ORDERABLES Edited Result - Final [facility] [place] [address] * Hepatitis panel, acute (10/18/2021 4:17 PM HOUSEKEEPING/LAUNDRY) Hep A IgM Nonreactive Nonreactive [facility] Comment: Interpretive Data: If Hep A IgM Ab is reported as Equivocal, a new sample should be drawn in two weeks for testing. Current interpretive data was last revised on 20. Hep B core IgM Nonreactive Nonreactive [facility] Comment: Interpretive Data If HepB Core IgM Ab is reported as Equivocal, a new sample should be drawn in two weeks for testing. Current interpretive data was last revised on 20. Hep C Ab Nonreactive Nonreactive [facility] Comment:Antibodies to HCV no t detected. Does NOT exclude the possibility of recent exposure to HCV. HepBsAg Nonreactive Nonreactive [facility] Blood 10/18/2021 4:17 PM HOUSEKEEPING/LAUNDRY 10/18/2021 4:43 PM HOUSEKEEPING/LAUNDRY German Nelson MD LAB MICROBIOLOGY - GENERAL ORDERABLES Edited Result - Final 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
--- OUTSIDE RECORDS SUMMARY | 2025-02-24 19:55 | XMS_ITS | Encounter Summary ---
Author Organization [facility] Address [address] [place] [address] Care Team Providers Care Adjunct Physical Education Instructor Name Role Phone Tyshawn Gonzales MD Primary Care Provider [phone] Encounter Details Date Type Department Care Team (Late st Contact Info) Description 07/15/2005 Outpatient Historical [facility] Donya Mcclellan MD [address] [facility] [place] [id number] Er, Authorized P NO ADDRESS ON FILE CONTUSION PERIOCULAR (Primary Dx) Social History Tobacco Use Types Packs/Day Years Used Date Smoking Tobacco: Never Assessed Comments Unknown Sex and Gender Information Value Date Recorded Sex Assigned at Not on file 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
[2025-02-24 20:25] LABS: Basophils Absolute Auto 0.1 K/mm3 (0.0-0.1); Basophils Percent Auto 0.5 % (0.2-1.2); Eosinophils Absolute Auto 0.1 K/mm3 (0-0.3); Eosinophils Percent Auto 0.3 % (0-4.4); Hematocrit 41.6 % (37.0-47.0); Hemoglobin 13.8 g/dL (12.0-15.0); Immature Granulocyte Absolute 0.05 K/mm3 (0.00-0.031); Immature Granulocyte Percent A 0.3 % (0-0.5); Lymphocytes Absolute Auto 3.51 K/mm3 (0.9-3.2); Lymphocytes Percent Auto 22.8 % (18.3-44.2); Mean Corpuscular HGB Conc 33.2 g/dl (32-36); Mean Corpuscular Hemoglobin 31.2 pg (26-34); Mean Corpuscular Volume 93.9 fl (80-100); Mean Platelet Volume 9.5 fl (7.4-10.4); Monocytes Absolute Auto 1.2 K/mm3 (0.1-0.6); Monocytes Percent Auto 7.9 % (2.6-8.5); Neutrophils Absolute Auto 10.5 K/mm3 (1.3-6.7); Neutrophils Percent Auto 68.2 % (45.5-73.1); Platelet Count Result 329 k/mm3 (150-375); Red Blood Count 4.43 M/mm3 (4.2-5.4); White Blood Count 15.4 K/mm3 (4.5-10.0)
--- NOTE | 2025-02-24 20:26 | PC.NURSE ---
patient refusing urine sample.
[2025-02-24 20:37] LABS: Alanine Aminotransferase 33 U/L (6-35); Albumin Level 4.6 g/dL (3.5-5.1); Alkaline Phosphatase 181 U/L (38-126); Anion Gap 13 mmol/L (4-12); Aspartate Amino Transferase 43 U/L (14-36); Bilirubin,Total 0.3 mg/dL (0.2-1.3); Blood Urea Nitrogen 21 mg/dL (7-17); Calcium 9.7 mg/dL (8.4-10.2); Carbon Dioxide 23 mmol/L (22-30); Chloride 104 mmol/L (98-107); Estimated CRCL calculation 92 ml/min; Estimated Glomerular Filt Rate > 60; Glucose 98 mg/dL (65-110); Potassium 4.3 mmol/L (3.4-5.0); Sodium 140 mmol/L (137-145)
[2025-02-24 20:41] LABS: Prothrombin Time 13.8 Seconds (11.1-14.7)
[2025-02-24] MEDS: SODIUM CHLORIDE 0.9% IV 1,000 ML 999 ML IV CONT (21:25)
[2025-02-24 21:26] VITALS: BP 136/83; PULSE 94; RESP 16; TEMP 36.4; O2SAT 98
--- NOTE | 2025-02-24 21:31 | PC.NURSE ---
patient refusing urine sample at this time.
--- NOTE | 2025-02-24 22:15 | PC.NURSE ---
rogelio lopez and this rn were at bedside to complete pelvic exam.
== END 2025-02-24 22:30 | disposition home or self-care (01) ==
PROVIDERS: Registered Nurse; Emergency Provider Physician Assistant
DX: O03.4 Incomplete spontaneous abortion without complication (principal); G40.909 Epilepsy, unspecified, not intractable, without status epilepticus
CPT/HCPCS: 36415; 76801; 76817; 80053; 84702; 85025; 85461; 85610; 85730; 86850; 86900; 86901; 90384; 96360; 96372; 99284; J2790; J7030